=== PATIENT | male | born 1980 | race Caucasian/White ===

== ENCOUNTER 2016-10-31 17:19 | Emergency (ER) | payer MEDICAID ==
[~2016-10-31] VITALS: Ht 180.3 cm; Wt 82.0 kg
[2016-10-31] MEDS: HYDROCODONE/ACETAMINOPHEN 5-325 MG TABLET PO ONE (18:56)
[2016-10-31 19:35] VITALS: BP 127/71
== END 2016-10-31 19:38 | disposition home or self-care (01) ==
LOC: EMS 17:21
DX: S93.401A Sprain of unspecified ligament of right ankle, initial encounter (principal); F17.210 Nicotine dependence, cigarettes, uncomplicated; F12.90 Cannabis use, unspecified, uncomplicated; F11.90 Opioid use, unspecified, uncomplicated; X58.XXXA Exposure to other specified factors, initial encounter; Y93.89 Activity, other specified; Y92.89 Other specified places as the place of occurrence of the external cause; Y99.8 Other external cause status
CPT/HCPCS: 99284

== ENCOUNTER 2016-11-03 13:15 | Emergency (ER) | payer MEDICAID ==
[~2016-11-03] VITALS: Ht 177.8 cm; Wt 81.8 kg
[2016-11-03] MEDS ORDERED: CEFTAROLINE 600 MG/D5W 250 ML IV ONE (14:45)
[2016-11-03] MEDS ORDERED: KETOROLAC TROMETHAMINE 30 MG/ML VIAL IVP ONE (14:45)
[2016-11-03] MEDS ORDERED: TraMADol HCL 50 MG TABLET PO ONE (16:15)
[2016-11-03 17:02] VITALS: BP 132/79
== END 2016-11-03 17:04 | disposition home or self-care (01) ==
LOC: EMS 13:20
DX: L03.115 Cellulitis of right lower limb (principal); F11.10 Opioid abuse, uncomplicated; F12.10 Cannabis abuse, uncomplicated; F17.200 Nicotine dependence, unspecified, uncomplicated
CPT/HCPCS: 96365; 96366; 96375; 99285; J0712; J1885

== ENCOUNTER 2017-01-16 08:36 | Emergency (ER) | payer MEDICAID, OTHER ==
[~2017-01-16] VITALS: Ht 177.8 cm; Wt 90.0 kg
[2017-01-16] MEDS ORDERED: METH10 PO (08:39)
[2017-01-16] MEDS ORDERED: PERTUSS(ACELL),DIPH,TET VAC/PF 0.5 ML VIAL IM ONE (09:30)
[2017-01-16] MEDS ORDERED: POVIDONE-IODINE 10% 120 ML SOLUTION TP ONE (10:00)
[2017-01-16] MEDS ORDERED: LIDOCAINE HCL 1% 10 ML VIAL INJ ONE (10:00)
[2017-01-16 10:17] VITALS: BP 118/66
== END 2017-01-16 10:54 | disposition home or self-care (01) ==
LOC: EMS 08:37
DX: S81.831A Puncture wound without foreign body, right lower leg, initial encounter (principal); F17.210 Nicotine dependence, cigarettes, uncomplicated; F12.90 Cannabis use, unspecified, uncomplicated; F11.90 Opioid use, unspecified, uncomplicated; W45.8XXA Other foreign body or object entering through skin, initial encounter; Y93.89 Activity, other specified; Y92.89 Other specified places as the place of occurrence of the external cause; Y99.8 Other external cause status
CPT/HCPCS: 10120; 73590; 90471; 90715; 99285; J3490

== ENCOUNTER 2017-02-14 17:41 | Emergency (ER) | payer OTHER ==
[~2017-02-14] VITALS: Ht 177.8 cm; Wt 81.8 kg
[~2017-02-14 17:41] MED LIST: METH10 PO
[2017-02-14] MEDS ORDERED: ONDANSETRON HCL 4 MG/2 ML VIAL IVP ONE (18:45)
[2017-02-14] MEDS ORDERED: MORPHINE SULFATE 4 MG/ML SYRINGE IVP ONE ×2 (18:45→20:15)
[2017-02-14] MEDS ORDERED: SODIUM CHLORIDE 0.9% 1,000 ML IV ONE (18:45)
[2017-02-14] MEDS ORDERED: LIDOCAINE HCL 1% 10 ML VIAL INJ ONE (18:45)
[2017-02-14 19:07] LABS: BASOPHILS # (AUTO) 0.06 K/uL (0.00-0.20); BASOPHILS % (AUTO) 0.5 % (0.0-2.0); EOSINOPHILS # (AUTO) 0.13 K/uL (0.00-0.70); EOSINOPHILS % (AUTO) 1.07 % (1.0-6.0); HEMATOCRIT 41.2 % (41-53); HEMOGLOBIN 13.9 g/dL (13.5-17.5); LYMPHOCYTES % (AUTO) 16.6 % (22.0-44.0); MEAN CORPUSCULAR HEMOGLOBIN 29.8 pg (26.0-34.0); MEAN CORPUSCULAR HGB CONC 33.7 G/dL (31.0-37.0); MEAN CORPUSCULAR VOLUME 89 fL (80-100); MONOCYTES # (AUTO) 0.9 K/uL (0.1-1.0); MONOCYTES % (AUTO) 7.6 % (2.0-9.0); NEUTROPHILS % (AUTO) 74.3 % (40.0-70.0); PLATELET COUNT (AUTO) 269 K/uL (150-450); RED BLOOD CELL COUNT(AUTO) 4.64 MIL/uL (4.50-5.90); RED CELL DISTRIBUTION WIDTH 14.5 % (11.5-14.5); WHITE BLOOD COUNT (AUTO) 12.1 K/uL (4.5-11.0)
[2017-02-14 19:12] LABS: ANION GAP 11 mmol/L (8-16); CALCIUM, TOTAL 8.9 mg/dL (8.8-10.5); CARBON DIOXIDE 26 mmol/L (22-29); CHLORIDE 100 mmol/L (98-107); CREATININE 0.87 mg/dL (0.60-1.30); GLOMERULAR FILTR. RATE CALC > 60 mL/min (>60); POTASSIUM 3.9 mmol/L (3.5-5.1); SODIUM SERUM 137 mmol/L (136-145); UREA NITROGEN, BLOOD 14 mg/dL (7-18)
[2017-02-14 19:17] LABS: ALANINE AMINOTRANSFERASE 38 U/L (12-78); ALBUMIN 3.2 g/dL (3.4-5.0); ASPARTATE AMINOTRANSFERASE 24 U/L (15-37); BILIRUBIN,TOTAL 0.5 mg/dL (0.1-1.0); TOTAL PROTEIN, SERUM 7.4 g/dL (6.4-8.2)
[2017-02-14] MEDS ORDERED: CLINDAMYCIN 600 MG/D5% WATER 50 ML IV ONE (19:45)
[2017-02-14] MEDS ORDERED: MORPHINE SULFATE 4 MG/ML SYRINGE IM ONE (20:30)
[2017-02-14 20:35] VITALS: BP 144/90
== END 2017-02-14 20:40 | disposition home or self-care (01) ==
LOC: EMS 17:44
DX: L02.413 Cutaneous abscess of right upper limb (principal); L03.113 Cellulitis of right upper limb; F17.210 Nicotine dependence, cigarettes, uncomplicated; F11.90 Opioid use, unspecified, uncomplicated; F12.90 Cannabis use, unspecified, uncomplicated
CPT/HCPCS: 10061; 36415; 80053; 85025; 96361; 96365; 96372; 96375; 99284; J2270; J2405; J3490 ×2; J7030

== ENCOUNTER 2017-04-04 03:23 | Emergency (ER) | payer OTHER ==
[~2017-04-04] VITALS: Ht 177.8 cm; Wt 77.3 kg
[2017-04-04] MEDS ORDERED: METH10 PO (03:28)
[2017-04-04 04:17] LABS: BASOPHILS % (AUTO) 0.2 % (0.0-2.0); EOSINOPHILS % (AUTO) 0.6 % (1.0-6.0); HEMOGLOBIN 15.7 g/dL (13.5-17.5); LYMPHOCYTES # (AUTO) 2.4 K/uL (1.0-4.8); LYMPHOCYTES % (AUTO) 20.2 % (22.0-44.0); MEAN CORPUSCULAR HEMOGLOBIN 30.3 pg (26.0-34.0); MEAN CORPUSCULAR HGB CONC 34.2 G/dL (31.0-37.0); MEAN CORPUSCULAR VOLUME 89 fL (80-100); MONOCYTES % (AUTO) 8.8 % (2.0-9.0); NEUTROPHILS # (AUTO) 8.3 K/uL (1.8-7.7); NEUTROPHILS % (AUTO) 70.2 % (40.0-70.0); PLATELET COUNT (AUTO) 225 K/uL (150-450); RED BLOOD CELL COUNT(AUTO) 5.19 MIL/uL (4.50-5.90); RED CELL DISTRIBUTION WIDTH 14.2 % (11.5-14.5); WHITE BLOOD COUNT (AUTO) 11.9 K/uL (4.5-11.0)
[2017-04-04 04:41] LABS: ANION GAP 9 mmol/L (8-16); CALCIUM, TOTAL 9.7 mg/dL (8.8-10.5); CARBON DIOXIDE 28 mmol/L (22-29); CHLORIDE 102 mmol/L (98-107); GLOMERULAR FILTR. RATE CALC > 60 mL/min (>60); POTASSIUM 4.5 mmol/L (3.5-5.1); SODIUM SERUM 139 mmol/L (136-145); UREA NITROGEN, BLOOD 17 mg/dL (7-18)
[2017-04-04 04:46] LABS: ALANINE AMINOTRANSFERASE 64 U/L (12-78); ALBUMIN 4.3 g/dL (3.4-5.0); ASPARTATE AMINOTRANSFERASE 46 U/L (15-37); BILIRUBIN,TOTAL 1.1 mg/dL (0.1-1.0); TOTAL PROTEIN, SERUM 8.4 g/dL (6.4-8.2)
[2017-04-04 04:47] VITALS: BP 118/60
[2017-04-04 05:03] LABS: GLUCOSE,POINT OF CARE 87 MG/DL (70-110)
== END 2017-04-04 05:15 | disposition home or self-care (01) ==
LOC: EMS 03:25
DX: R11.2 Nausea with vomiting, unspecified (principal); F15.10 Other stimulant abuse, uncomplicated; F11.90 Opioid use, unspecified, uncomplicated; F12.90 Cannabis use, unspecified, uncomplicated; F17.210 Nicotine dependence, cigarettes, uncomplicated; Z02.89 Encounter for other administrative examinations
CPT/HCPCS: 36415; 80053; 80307; 82962; 83690; 85025; 93005; 99285; G0480

== ENCOUNTER 2017-04-19 18:34 | Inpatient (IN) | payer OTHER ==
[~2017-04-19] VITALS: Ht 167.6 cm; Wt 80.5 kg
[2017-04-19 19:55] LABS: BASOPHILS # (AUTO) 0.02 K/uL (0.00-0.20); BASOPHILS % (AUTO) 0.2 % (0.0-2.0); EOSINOPHILS # (AUTO) 0.11 K/uL (0.00-0.70); EOSINOPHILS % (AUTO) 1.29 % (1.0-6.0); HEMATOCRIT 49.9 % (41-53); HEMOGLOBIN 16.6 g/dL (13.5-17.5); LYMPHOCYTES # (AUTO) 1.2 K/uL (1.0-4.8); LYMPHOCYTES % (AUTO) 13.8 % (22.0-44.0); MEAN CORPUSCULAR HEMOGLOBIN 30.2 pg (26.0-34.0); MEAN CORPUSCULAR HGB CONC 33.2 G/dL (31.0-37.0); MEAN CORPUSCULAR VOLUME 91 fL (80-100); MONOCYTES # (AUTO) 0.5 K/uL (0.1-1.0); MONOCYTES % (AUTO) 5.6 % (2.0-9.0); NEUTROPHILS % (AUTO) 79.1 % (40.0-70.0); PLATELET COUNT (AUTO) 186 K/uL (150-450); RED BLOOD CELL COUNT(AUTO) 5.49 MIL/uL (4.50-5.90); RED CELL DISTRIBUTION WIDTH 14.9 % (11.5-14.5)
[2017-04-19 20:08] LABS: ANION GAP 11 mmol/L (8-16); CALCIUM, TOTAL 9.2 mg/dL (8.8-10.5); CARBON DIOXIDE 26 mmol/L (22-29); CHLORIDE 106 mmol/L (98-107); GLOMERULAR FILTR. RATE CALC > 60 mL/min (>60); GLUCOSE,RANDOM 104 mg/dL (70-110); POTASSIUM 4.4 mmol/L (3.5-5.1); SODIUM SERUM 143 mmol/L (136-145); UREA NITROGEN, BLOOD 18 mg/dL (7-18)
[2017-04-19 20:13] LABS: ALANINE AMINOTRANSFERASE 103 U/L (12-78); ALBUMIN 4.3 g/dL (3.4-5.0); ALKALINE PHOSPHATASE 69 U/L (46-116); ASPARTATE AMINOTRANSFERASE 57 U/L (15-37); BILIRUBIN,TOTAL 0.8 mg/dL (0.1-1.0); TOTAL PROTEIN, SERUM 8.3 g/dL (6.4-8.2)
[2017-04-19] MEDS ORDERED: ONDANSETRON HCL 4 MG/2 ML VIAL IVP ONE (21:30)
[2017-04-19] MEDS ORDERED: NALOXONE HCL 1 MG/ML 2 ML SYG IVP ONE (21:45)
[2017-04-19 21:50] LABS: AMPHET/METH SCREEN,URINE NEGATIVE (NEGATIVE); BARBITURATE SCREEN, URINE NEGATIVE (NEGATIVE); BENZODIAZEPINES SCREEN,URINE NEGATIVE (NEGATIVE); CANNABINOID SCREEN,URINE NEGATIVE (NEGATIVE); COCAINE SCREEN,URINE NEGATIVE (NEGATIVE); METHADONE SCREEN, URINE NEGATIVE (NEGATIVE); OPIATE SCREEN,URINE POSITIVE (NEGATIVE)
[2017-04-19 21:51] LABS: PHENCYCLIDINE SCREEN,URINE NEGATIVE (NEGATIVE)
[2017-04-19] MEDS ORDERED: 0.9% SODIUM CHLORIDE 10 ML SYRINGE IVP PRN (22:30)
[2017-04-19] MEDS ORDERED: ACETAMINOPHEN 325 MG TABLET PO PRN (22:30)
[2017-04-19] MEDS ORDERED: ONDANSETRON HCL 4 MG/2 ML VIAL IVP PRN (22:30)
[2017-04-19 23:00] VITALS: BP 125/91
[2017-04-19 23:44] VITALS: BP 128/97
[2017-04-20] MEDS ORDERED: NALOXONE HCL 1 MG/ML 2 ML SYG IVP ONE (00:30)
[2017-04-20] MEDS ORDERED: PNEUMOCOCCAL VACCINE POLYVALENT 0.5 ML VIAL [PPSV23] IM ONE (01:30)
[2017-04-20] MEDS ORDERED: INFLUENZA VIRUS VACCINE QVS 2017-18 (3YR+)/PF 60 MCG/0.5 ML SYRINGE IM ONE (02:00)
[2017-04-20] MEDS ORDERED: IPRATROPIUM BROMIDE 0.5 MG/2.5 ML NEB SOLUTION NEB PRN (04:15)
[2017-04-20] MEDS ORDERED: BISACODYL 10 MG RECTAL RECTAL SUPPOSITORY PR PRN (04:15)
[2017-04-20] MEDS ORDERED: ALBUTEROL SULFATE 2.5 MG/0.5 ML NEB SOLUTION NEB PRN (04:15)
[2017-04-20] MEDS ORDERED: MAGNESIUM HYDROXIDE SUSPENSION 30 ML UDCUP PO PRN (04:15)
[2017-04-20] MEDS ORDERED: ONDANSETRON HCL 4 MG/2 ML VIAL IVP PRN (04:15)
[2017-04-20] MEDS ORDERED: MAGNESIUM SULFATE 2 GM, MVI, ADULT NO.1 WITH VIT K 10 ML, THIAMINE HCL 100 MG, FOLIC AC... IV ONE ×5 (04:30)
[2017-04-20] MEDS ORDERED: [UNRECOGNIZED DRUG - REMARK] IV SCH ×5 (04:45)
[2017-04-20 05:15] VITALS: BP 124/82
[2017-04-20 07:16] VITALS: BP 100/65
[2017-04-20 07:57] LABS: BASOPHILS # (AUTO) 0.03 K/uL (0.00-0.20); BASOPHILS % (AUTO) 0.4 % (0.0-2.0); EOSINOPHILS # (AUTO) 0.19 K/uL (0.00-0.70); EOSINOPHILS % (AUTO) 2.15 % (1.0-6.0); HEMATOCRIT 43.4 % (41-53); HEMOGLOBIN 14.8 g/dL (13.5-17.5); LYMPHOCYTES % (AUTO) 23.2 % (22.0-44.0); MEAN CORPUSCULAR HEMOGLOBIN 30.5 pg (26.0-34.0); MEAN CORPUSCULAR VOLUME 89 fL (80-100); MONOCYTES # (AUTO) 0.7 K/uL (0.1-1.0); MONOCYTES % (AUTO) 8.4 % (2.0-9.0); NEUTROPHILS # (AUTO) 5.8 K/uL (1.8-7.7); NEUTROPHILS % (AUTO) 65.8 % (40.0-70.0); PLATELET COUNT (AUTO) 174 K/uL (150-450); RED BLOOD CELL COUNT(AUTO) 4.85 MIL/uL (4.50-5.90); RED CELL DISTRIBUTION WIDTH 14.4 % (11.5-14.5)
[2017-04-20 08:27] LABS: ALANINE AMINOTRANSFERASE 84 U/L (12-78); ALBUMIN 3.6 g/dL (3.4-5.0); ALKALINE PHOSPHATASE 54 U/L (46-116); ANION GAP 6 mmol/L (8-16); ASPARTATE AMINOTRANSFERASE 42 U/L (15-37); BILIRUBIN,TOTAL 1.2 mg/dL (0.1-1.0); CALCIUM, TOTAL 8.6 mg/dL (8.8-10.5); CARBON DIOXIDE 30 mmol/L (22-29); CHLORIDE 101 mmol/L (98-107); CREATININE 0.98 mg/dL (0.60-1.30); FREE T4 (FREE THYROXINE) 1.14 ng/dL (0.76-1.46); GLOMERULAR FILTR. RATE CALC > 60 mL/min (>60); GLUCOSE,RANDOM 78 mg/dL (70-110); POTASSIUM 3.8 mmol/L (3.5-5.1); SODIUM SERUM 137 mmol/L (136-145); THYROID STIMULATING HORMONE 2.78 uIU/mL (0.36-3.74); TOTAL PROTEIN, SERUM 6.8 g/dL (6.4-8.2); UREA NITROGEN, BLOOD 16 mg/dL (7-18)
[2017-04-20] MEDS: PANTOPRAZOLE SODIUM 40 MG DR TABLET PO SCH (08:39)
[2017-04-20] MEDS: DOCUSATE SODIUM 100 MG CAPSULE PO SCH ×2 (08:40→20:41)
[2017-04-20] MEDS ORDERED: HEPARIN SODIUM,PORCINE 5,000 UNITS/ML VIAL SQ SCH (09:00)
[2017-04-20 11:58] VITALS: BP 124/76
[2017-04-20 15:16] VITALS: BP_SYST 129; BP_SYST 130; BP_DIAS 62; BP_DIAS 71
[2017-04-20 15:45] VITALS: BP 138/77
[2017-04-20] MEDS: SODIUM CHLORIDE 0.9% 1,000 ML IV SCH (17:32)
[2017-04-20 20:13] VITALS: BP 129/78
[2017-04-20] MEDS ORDERED: MIRTAZAPINE 15 MG TABLET PO SCH (21:00)
[2017-04-21 05:29] VITALS: BP 125/77
[2017-04-21 08:00] VITALS: BP 129/74
[2017-04-21] MEDS: PANTOPRAZOLE SODIUM 40 MG DR TABLET PO SCH (08:00)
[2017-04-21] MEDS: DOCUSATE SODIUM 100 MG CAPSULE PO SCH (08:01)
[2017-04-21] MEDS ORDERED: ARIPiprazole 5 MG TABLET PO SCH (09:00)
[2017-04-21] MEDS: SODIUM CHLORIDE 0.9% 1,000 ML IV SCH ×2 (09:05)
== END 2017-04-21 10:35 | disposition home or self-care (01) | DRG 812 ==
LOC: EMS 18:35 → OBSVTOIN 22:13 → 5N 22:13 → 6N 22:13 → INTOOBSV 22:13 → 6N 04-20 15:10
PROVIDERS: ADMIT Internal Medicine; ATTEND Internal Medicine
DX: T40.3X1A Poisoning by methadone, accidental (unintentional), initial encounter (principal); G92 Toxic encephalopathy; F17.210 Nicotine dependence, cigarettes, uncomplicated; F12.90 Cannabis use, unspecified, uncomplicated; F41.9 Anxiety disorder, unspecified; F33.3 Major depressive disorder, recurrent, severe with psychotic symptoms; F11.20 Opioid dependence, uncomplicated; F60.9 Personality disorder, unspecified; Z59.0 Homelessness; Z86.19 Personal history of other infectious and parasitic diseases; Y92.89 Other specified places as the place of occurrence of the external cause
CPT/HCPCS: 83735; 84439; 84443; 90471; 96374; 96375; 99291; G0480; J1644; J2310; J2405; J3411; J3475; J3490; J7030

== ENCOUNTER 2017-09-14 15:03 | Emergency (ER) | payer OTHER ==
[~2017-09-14] VITALS: Ht 177.8 cm; Wt 81.8 kg
[2017-09-14] MEDS ORDERED: 0.9% SODIUM CHLORIDE 10 ML SYRINGE IVP PRN (15:15)
[2017-09-14] MEDS ORDERED: DEXAMETHASONE SOD PHOS 4 MG/ML 5 ML VIAL IVP ONE (15:15)
[2017-09-14] MEDS ORDERED: DEXAMETHASONE SOD PHOS 4 MG/ML 5 ML VIAL IM ONE (16:15)
[2017-09-14 16:41] LABS: BASOPHILS % (AUTO) 0.3 % (0.0-2.0); EOSINOPHILS % (AUTO) 2.1 % (1.0-6.0); HEMATOCRIT 41.6 % (41-53); LYMPHOCYTES # (AUTO) 1.4 K/uL (1.0-4.8); LYMPHOCYTES % (AUTO) 15.7 % (22.0-44.0); MEAN CORPUSCULAR HEMOGLOBIN 29.6 pg (26.0-34.0); MEAN CORPUSCULAR VOLUME 82 fL (80-100); MONOCYTES # (AUTO) 0.7 K/uL (0.1-1.0); MONOCYTES % (AUTO) 8.2 % (2.0-9.0); NEUTROPHILS # (AUTO) 6.7 K/uL (1.8-7.7); NEUTROPHILS % (AUTO) 73.7 % (40.0-70.0); PLATELET COUNT (AUTO) 199 K/uL (150-450); RED BLOOD CELL COUNT(AUTO) 5.06 MIL/uL (4.50-5.90); RED CELL DISTRIBUTION WIDTH 14.3 % (11.5-14.5)
[2017-09-14 16:50] LABS: ANION GAP 8 mmol/L (8-16); CALCIUM, TOTAL 9.2 mg/dL (8.8-10.5); CARBON DIOXIDE 28 mmol/L (22-29); CHLORIDE 97 mmol/L (98-107); CREATININE 0.59 mg/dL (0.60-1.30); GLOMERULAR FILTR. RATE CALC > 60 mL/min (>60); GLUCOSE,RANDOM 90 mg/dL (70-110); SODIUM SERUM 133 mmol/L (136-145); UREA NITROGEN, BLOOD 9 mg/dL (7-18)
[2017-09-14 16:56] LABS: ALANINE AMINOTRANSFERASE 128 U/L (12-78); ALBUMIN 3.5 g/dL (3.4-5.0); ALKALINE PHOSPHATASE 75 U/L (46-116); ASPARTATE AMINOTRANSFERASE 80 U/L (15-37); BILIRUBIN,TOTAL 1.3 mg/dL (0.1-1.0); TOTAL PROTEIN, SERUM 8.1 g/dL (6.4-8.2)
[2017-09-14 16:57] LABS: LACTIC ACID 0.7 mmol/L (0.4-2.0)
[2017-09-14 19:24] VITALS: BP 143/84
== END 2017-09-14 19:25 | disposition home or self-care (01) ==
LOC: EMS 15:05
DX: F19.959 Other psychoactive substance use, unspecified with psychoactive substance-induced psychotic disorder, unspecified (principal); F11.10 Opioid abuse, uncomplicated; R13.10 Dysphagia, unspecified; F17.210 Nicotine dependence, cigarettes, uncomplicated; F12.90 Cannabis use, unspecified, uncomplicated
CPT/HCPCS: 36415; 71045; 80053; 83605; 85025; 85730; 87040; 87430; 93005; 96372; 99285; J1100

== ENCOUNTER 2017-09-15 06:03 | Inpatient (IN) | payer OTHER ==
[~2017-09-15] VITALS: Ht 177.8 cm; Wt 80.1 kg
[2017-09-15] MEDS ORDERED: NALOXONE HCL 1 MG/ML 2 ML SYG IVP ONE (07:30)
[2017-09-15] MEDS ORDERED: NALOXONE HCL 1 MG/ML 2 ML SYG IM ONE (07:30)
[2017-09-15 07:32] LABS: GLUCOSE,POINT OF CARE 118 MG/DL (70-110)
[2017-09-15] MEDS ORDERED: RAPID SEQUENCE KIT [RSI] 1 EACH KIT ONE (07:35)
[2017-09-15] MEDS ORDERED: SUCCINYLCHOLINE CHLORIDE 20 MG/ML 10 ML VIAL ONE (07:37)
[2017-09-15 07:49] LABS: BASOPHILS % (AUTO) 0.2 % (0.0-2.0); EOSINOPHILS % (AUTO) 0.1 % (1.0-6.0); HEMATOCRIT 47.2 % (41-53); HEMOGLOBIN 16.7 g/dL (13.5-17.5); LYMPHOCYTES # (AUTO) 1.7 K/uL (1.0-4.8); LYMPHOCYTES % (AUTO) 8.9 % (22.0-44.0); MEAN CORPUSCULAR HEMOGLOBIN 29.3 pg (26.0-34.0); MEAN CORPUSCULAR HGB CONC 35.4 G/dL (31.0-37.0); MEAN CORPUSCULAR VOLUME 83 fL (80-100); MONOCYTES # (AUTO) 0.6 K/uL (0.1-1.0); MONOCYTES % (AUTO) 3.2 % (2.0-9.0); NEUTROPHILS # (AUTO) 16.8 K/uL (1.8-7.7); PLATELET COUNT (AUTO) 340 K/uL (150-450); RED CELL DISTRIBUTION WIDTH 14.5 % (11.5-14.5)
[2017-09-15 07:51] LABS: NEUTROPHILS % (AUTO) 87.6 % (40.0-70.0)
[2017-09-15 08:12] LABS: ANION GAP 7 mmol/L (8-16); CALCIUM, TOTAL 9.8 mg/dL (8.8-10.5); CARBON DIOXIDE 30 mmol/L (22-29); CHLORIDE 96 mmol/L (98-107); CREATININE 0.66 mg/dL (0.60-1.30); GLOMERULAR FILTR. RATE CALC > 60 mL/min (>60); GLUCOSE,RANDOM 155 mg/dL (70-110); POTASSIUM 4.8 mmol/L (3.5-5.1); SODIUM SERUM 133 mmol/L (136-145); UREA NITROGEN, BLOOD 14 mg/dL (7-18)
[2017-09-15 08:15] LABS: AMPHET/METH SCREEN,URINE NEGATIVE (NEGATIVE); BARBITURATE SCREEN, URINE NEGATIVE (NEGATIVE); BENZODIAZEPINES SCREEN,URINE NEGATIVE (NEGATIVE); CANNABINOID SCREEN,URINE NEGATIVE (NEGATIVE); COCAINE SCREEN,URINE NEGATIVE (NEGATIVE); METHADONE SCREEN, URINE NEGATIVE (NEGATIVE); OPIATE SCREEN,URINE POSITIVE (NEGATIVE)
[2017-09-15 08:18] LABS: ALANINE AMINOTRANSFERASE 145 U/L (12-78); ALBUMIN 4.3 g/dL (3.4-5.0); ALKALINE PHOSPHATASE 107 U/L (46-116); ASPARTATE AMINOTRANSFERASE 80 U/L (15-37); BILIRUBIN,TOTAL 1.5 mg/dL (0.1-1.0); TOTAL PROTEIN, SERUM 10.2 g/dL (6.4-8.2)
[2017-09-15 08:18] LABS: PHENCYCLIDINE SCREEN,URINE NEGATIVE (NEGATIVE)
[2017-09-15 08:20] LABS: ACETAMINOPHEN 2 mcg/mL (10-30)
[2017-09-15 08:23] LABS: SALICYLATE 0.7 mg/dL (2.8-20.0)
[2017-09-15 09:00] LABS: ABG A-A DIFF O2 517.5 mmHg (10-20.0); ABG BASE EXCESS -4.4 mmol/L (-2.0-3.0); ABG CARBOXYHEMOGLOBIN 1.3 % (0.0-1.5); ABG HCO3 20.1 mmol/L (22.0-26.0); ABG METHEMOGLOBIN 0.3 % (0.0-1.5); ABG OXYGEN CONTENT 24.1 mL/dL (15.0-23.0); ABG OXYGEN SATURATION 98.5 % (95.0-98.0); ABG OXYHEMOGLOBIN 96.9 % (94.0-100.0); ABG PCO2 58 mmHg (35-45); ABG TOTAL HEMOGLOBIN 17.6 G/dL (12.0-18.0); PO2, ARTERIAL BG 137.1 mmHg (92.0-100.0); SOURCE, BLOOD GAS ARTERIAL; TEMPERATURE, FAHRENHEIT, BG 98.6 FAHREN (96.0-98.6)
[2017-09-15 09:01] LABS: O2 DEVICE,BLOOD GAS VENTILATOR (ROOM AIR); PEEP,BG 5 cm H2O; SITE, BLOOD GAS RT BRACHIAL; VT, ABG 550 ml
[2017-09-15] MEDS: PROPOFOL 1000 MG/ISO-OSM 100 ML IV PRN ×3 (09:46→20:15)
[2017-09-15] MEDS: CefTRIAXone SODIUM 1 GM in DEXTROSE 5%-WATER 10 ML IV SCH (10:12)
[2017-09-15] MEDS ORDERED: SUCCINYLCHOLINE CHLORIDE 20 MG/ML 10 ML VIAL IVP ONE (10:35)
[2017-09-15] MEDS ORDERED: ETOMIDATE 2 MG/ML 10 ML VIAL IVP ONE (10:35)
[2017-09-15] MEDS ORDERED: ROCURONIUM BROMIDE 10 MG/ML 5 ML VIAL IVP ONE (12:00)
[2017-09-15] MEDS: MethylPREDNISolone SOD SUCC 125 MG/2 ML VIAL IVP SCH ×3 (12:06→23:58)
[2017-09-15] MEDS ORDERED: SODIUM CHLORIDE 0.9% 1,000 ML IV ONE (13:30)
[2017-09-15 14:05] VITALS: BP 135/84
[2017-09-15] MEDS ORDERED: ONDANSETRON HCL 4 MG/2 ML VIAL IVP PRN (17:15)
[2017-09-15] MEDS ORDERED: 0.9% SODIUM CHLORIDE 10 ML SYRINGE IVP PRN (17:15)
[2017-09-15] MEDS: PANTOPRAZOLE SODIUM 40 MG/VIAL IVP SCH (17:34)
[2017-09-15] MEDS: MVI, ADULT NO.1 WITH VIT K 10 ML in DEXTROSE 5%-0.9% SODIUM CHL 1,000 ML IV SCH ×2 (18:28)
[2017-09-15] MEDS: FentaNYL CITRATE PF 500 MCG in DEXTROSE 5%-WATER 90 ML IV PRN (18:29)
[2017-09-15 20:00] VITALS: BP 171/104
[2017-09-15 20:21] LABS: ABG A-A DIFF O2 156.5 mmHg (10-20.0); ABG BASE EXCESS -0.1 mmol/L (-2.0-3.0); ABG CARBOXYHEMOGLOBIN 1.1 % (0.0-1.5); ABG HCO3 24.4 mmol/L (22.0-26.0); ABG METHEMOGLOBIN 0.3 % (0.0-1.5); ABG OXYGEN CONTENT 20.6 mL/dL (15.0-23.0); ABG OXYGEN SATURATION 96.3 % (95.0-98.0); ABG PCO2 40 mmHg (35-45); ABG PH 7.403 (7.350-7.450); ABG TOTAL HEMOGLOBIN 15.4 G/dL (12.0-18.0); PO2, ARTERIAL BG 82.2 mmHg (92.0-100.0); SOURCE, BLOOD GAS ARTERIAL; TEMPERATURE, FAHRENHEIT, BG 98.6 FAHREN (96.0-98.6)
[2017-09-15 20:22] LABS: O2 DEVICE,BLOOD GAS VENTILATOR (ROOM AIR); SITE, BLOOD GAS LFT BRACHIAL
[2017-09-15 20:23] LABS: PEEP,BG 5 cm H2O
[2017-09-15 20:24] LABS: VT, ABG 550 ml
[2017-09-15] MEDS ORDERED: SODIUM CHLORIDE 0.9% 250 ML IV ONE (23:56)
[2017-09-16] VITALS: BP 143/73
[2017-09-16] MEDS: PROPOFOL 1000 MG/ISO-OSM 100 ML IV PRN ×6 (00:27→20:36)
[2017-09-16] MEDS: FentaNYL CITRATE PF 500 MCG in DEXTROSE 5%-WATER 90 ML IV PRN ×3 (02:37→17:40)
[2017-09-16 04:00] VITALS: BP 149/95
[2017-09-16] MEDS: MVI, ADULT NO.1 WITH VIT K 10 ML in DEXTROSE 5%-0.9% SODIUM CHL 1,000 ML IV SCH ×4 (04:09→15:44)
[2017-09-16 05:13] LABS: BASOPHILS % (AUTO) 0.1 % (0.0-2.0); EOSINOPHILS % (AUTO) 0 % (1.0-6.0); HEMOGLOBIN 14.8 g/dL (13.5-17.5); LYMPHOCYTES # (AUTO) 0.7 K/uL (1.0-4.8); MEAN CORPUSCULAR HEMOGLOBIN 29.3 pg (26.0-34.0); MEAN CORPUSCULAR HGB CONC 35.2 G/dL (31.0-37.0); MEAN CORPUSCULAR VOLUME 83 fL (80-100); MONOCYTES # (AUTO) 0.6 K/uL (0.1-1.0); MONOCYTES % (AUTO) 4.4 % (2.0-9.0); NEUTROPHILS # (AUTO) 13.4 K/uL (1.8-7.7); PLATELET COUNT (AUTO) 281 K/uL (150-450); RED BLOOD CELL COUNT(AUTO) 5.05 MIL/uL (4.50-5.90); RED CELL DISTRIBUTION WIDTH 14.9 % (11.5-14.5)
[2017-09-16 05:22] LABS: ANION GAP 7 mmol/L (8-16); CALCIUM, TOTAL 9.1 mg/dL (8.8-10.5); CARBON DIOXIDE 30 mmol/L (22-29); CHLORIDE 101 mmol/L (98-107); CREATININE 0.71 mg/dL (0.60-1.30); GLOMERULAR FILTR. RATE CALC > 60 mL/min (>60); GLUCOSE,RANDOM 144 mg/dL (70-110); POTASSIUM 4.6 mmol/L (3.5-5.1); SODIUM SERUM 138 mmol/L (136-145); UREA NITROGEN, BLOOD 17 mg/dL (7-18)
[2017-09-16 05:44] LABS: NEUTROPHILS % (AUTO) 90.5 % (40.0-70.0)
[2017-09-16] MEDS: MethylPREDNISolone SOD SUCC 125 MG/2 ML VIAL IVP SCH ×3 (05:47→17:39)
[2017-09-16] MEDS: PANTOPRAZOLE SODIUM 40 MG/VIAL IVP SCH (07:50)
[2017-09-16 08:00] VITALS: BP 159/84
[2017-09-16 09:21] LABS: ABG A-A DIFF O2 216.4 mmHg (10-20.0); ABG BASE EXCESS 4.6 mmol/L (-2.0-3.0); ABG CARBOXYHEMOGLOBIN 1.2 % (0.0-1.5); ABG HCO3 27.7 mmol/L (22.0-26.0); ABG METHEMOGLOBIN 0.2 % (0.0-1.5); ABG OXYGEN CONTENT 19.8 mL/dL (15.0-23.0); ABG OXYGEN SATURATION 97.1 % (95.0-98.0); ABG OXYHEMOGLOBIN 95.7 % (94.0-100.0); ABG PCO2 48 mmHg (35-45); ABG PH 7.404 (7.350-7.450); ABG TOTAL HEMOGLOBIN 14.7 G/dL (12.0-18.0); PO2, ARTERIAL BG 86.4 mmHg (92.0-100.0); SOURCE, BLOOD GAS ARTERIAL; TEMPERATURE, FAHRENHEIT, BG 98.3 FAHREN (96.0-98.6)
[2017-09-16 09:22] LABS: O2 DEVICE,BLOOD GAS VENTILATOR (ROOM AIR); PEEP,BG 5 cm H2O; SITE, BLOOD GAS RT RADIAL; VT, ABG 550 ml
[2017-09-16] MEDS: CefTRIAXone SODIUM 1 GM in DEXTROSE 5%-WATER 10 ML IV SCH (09:45)
[2017-09-16] MEDS: AZITHROMYCIN 500 MG/NS 250 ML IV SCH (11:10)
[2017-09-16 12:00] VITALS: BP 139/78
[2017-09-16] MEDS ORDERED: SODIUM CHLORIDE 0.9% 250 ML IV ONE (15:16)
[2017-09-16 16:00] VITALS: BP 157/96
[2017-09-16] MEDS ORDERED: VANCOMYCIN HCL 1 GM/D5% WATER 200 ML IV ONE (17:00)
[2017-09-16 20:00] VITALS: BP 156/83
[2017-09-16] MEDS: HEPARIN SODIUM,PORCINE 5,000 UNITS/ML VIAL SQ SCH (21:22)
[2017-09-16] MEDS: VANCOMYCIN HCL 1.25 GM in DEXTROSE 5%-WATER 250 ML IV SCH (21:23)
[2017-09-16] MEDS ORDERED: VANCOMYCIN HCL 1.25 GM in DEXTROSE 5%-WATER 250 ML IV ONE (22:00)
[2017-09-17] VITALS: BP 170/88
[2017-09-17] MEDS: MethylPREDNISolone SOD SUCC 125 MG/2 ML VIAL IVP SCH ×4 (00:14→17:23)
[2017-09-17] MEDS: MVI, ADULT NO.1 WITH VIT K 10 ML in DEXTROSE 5%-0.9% SODIUM CHL 1,000 ML IV SCH ×6 (00:15→20:31)
[2017-09-17] MEDS: FentaNYL CITRATE PF 500 MCG in DEXTROSE 5%-WATER 90 ML IV PRN ×3 (00:15→14:58)
[2017-09-17] MEDS: PROPOFOL 1000 MG/ISO-OSM 100 ML IV PRN ×5 (01:58→21:21)
[2017-09-17 04:00] VITALS: BP 153/84
[2017-09-17 05:15] LABS: ANION GAP 6 mmol/L (8-16); CALCIUM, TOTAL 8.9 mg/dL (8.8-10.5); CARBON DIOXIDE 29 mmol/L (22-29); CHLORIDE 104 mmol/L (98-107); CREATININE 0.67 mg/dL (0.60-1.30); GLOMERULAR FILTR. RATE CALC > 60 mL/min (>60); GLUCOSE,RANDOM 151 mg/dL (70-110); POTASSIUM 4.2 mmol/L (3.5-5.1); SODIUM SERUM 139 mmol/L (136-145); UREA NITROGEN, BLOOD 16 mg/dL (7-18)
[2017-09-17] MEDS: VANCOMYCIN HCL 1.25 GM in DEXTROSE 5%-WATER 250 ML IV SCH ×3 (06:06→21:11)
[2017-09-17] MEDS: HEPARIN SODIUM,PORCINE 5,000 UNITS/ML VIAL SQ SCH ×2 (09:28→21:11)
[2017-09-17] MEDS: CefTRIAXone SODIUM 1 GM in DEXTROSE 5%-WATER 10 ML IV SCH (09:28)
[2017-09-17 09:42] VITALS: BP 169/89
[2017-09-17] MEDS: PANTOPRAZOLE SODIUM 40 MG/VIAL IVP SCH (10:17)
[2017-09-17] MEDS: AZITHROMYCIN 500 MG/NS 250 ML IV SCH (10:51)
[2017-09-17] MEDS ORDERED: SODIUM CHLORIDE 0.9% 250 ML IV ONE (11:10)
[2017-09-17 12:00] VITALS: BP 172/93
[2017-09-17 16:00] VITALS: BP 171/91
[2017-09-17 20:00] VITALS: BP 164/88
[2017-09-18] VITALS: BP 162/95
[2017-09-18] MEDS: MethylPREDNISolone SOD SUCC 125 MG/2 ML VIAL IVP SCH ×4 (00:11→17:16)
[2017-09-18] MEDS: FentaNYL CITRATE PF 500 MCG in DEXTROSE 5%-WATER 90 ML IV PRN ×3 (00:12→16:06)
[2017-09-18] MEDS: PROPOFOL 1000 MG/ISO-OSM 100 ML IV PRN ×6 (01:51→20:31)
[2017-09-18 04:00] VITALS: BP 175/96
[2017-09-18 05:35] LABS: BASOPHILS % (AUTO) 0.1 % (0.0-2.0); EOSINOPHILS % (AUTO) 0 % (1.0-6.0); HEMATOCRIT 42.4 % (41-53); HEMOGLOBIN 14.8 g/dL (13.5-17.5); LYMPHOCYTES # (AUTO) 0.4 K/uL (1.0-4.8); LYMPHOCYTES % (AUTO) 2.3 % (22.0-44.0); MEAN CORPUSCULAR HEMOGLOBIN 29.3 pg (26.0-34.0); MEAN CORPUSCULAR HGB CONC 34.8 G/dL (31.0-37.0); MEAN CORPUSCULAR VOLUME 84 fL (80-100); MONOCYTES # (AUTO) 1.6 K/uL (0.1-1.0); MONOCYTES % (AUTO) 8.6 % (2.0-9.0); NEUTROPHILS # (AUTO) 16.1 K/uL (1.8-7.7); PLATELET COUNT (AUTO) 243 K/uL (150-450); RED BLOOD CELL COUNT(AUTO) 5.03 MIL/uL (4.50-5.90); RED CELL DISTRIBUTION WIDTH 14.7 % (11.5-14.5)
[2017-09-18 05:42] LABS: ANION GAP 7 mmol/L (8-16); CARBON DIOXIDE 31 mmol/L (22-29); CHLORIDE 102 mmol/L (98-107); CREATININE 0.68 mg/dL (0.60-1.30); GLOMERULAR FILTR. RATE CALC > 60 mL/min (>60); GLUCOSE,RANDOM 169 mg/dL (70-110); POTASSIUM 4.2 mmol/L (3.5-5.1); SODIUM SERUM 140 mmol/L (136-145); UREA NITROGEN, BLOOD 15 mg/dL (7-18); VANCOMYCIN,RANDOM 9.6 mcg/mL (25.0-50.0)
[2017-09-18] MEDS: VANCOMYCIN HCL 1.25 GM in DEXTROSE 5%-WATER 250 ML IV SCH ×3 (06:06→17:16)
[2017-09-18] MEDS: MVI, ADULT NO.1 WITH VIT K 10 ML in DEXTROSE 5%-0.9% SODIUM CHL 1,000 ML IV SCH ×4 (06:06→16:34)
[2017-09-18 08:00] VITALS: BP 140/89
[2017-09-18 08:06] LABS: ABG A-A DIFF O2 233.4 mmHg (10-20.0); ABG BASE EXCESS 4.7 mmol/L (-2.0-3.0); ABG CARBOXYHEMOGLOBIN 1.3 % (0.0-1.5); ABG HCO3 27.5 mmol/L (22.0-26.0); ABG METHEMOGLOBIN 0.2 % (0.0-1.5); ABG OXYGEN CONTENT 19.7 mL/dL (15.0-23.0); ABG OXYGEN SATURATION 93.6 % (95.0-98.0); ABG OXYHEMOGLOBIN 92.2 % (94.0-100.0); ABG PCO2 51 mmHg (35-45); ABG PH 7.384 (7.350-7.450); ABG TOTAL HEMOGLOBIN 15.2 G/dL (12.0-18.0); PO2, ARTERIAL BG 65.5 mmHg (92.0-100.0); SOURCE, BLOOD GAS ARTERIAL; TEMPERATURE, FAHRENHEIT, BG 98.7 FAHREN (96.0-98.6)
[2017-09-18 08:07] LABS: O2 DEVICE,BLOOD GAS VENTILATOR (ROOM AIR); SITE, BLOOD GAS RT RADIAL; VT, ABG 550 ml
[2017-09-18 08:08] LABS: PEEP,BG 0 cm H2O
[2017-09-18] MEDS: PANTOPRAZOLE SODIUM 40 MG/VIAL IVP SCH (08:30)
[2017-09-18] MEDS: HEPARIN SODIUM,PORCINE 5,000 UNITS/ML VIAL SQ SCH ×2 (08:31→20:30)
[2017-09-18] MEDS: AZITHROMYCIN 500 MG/NS 250 ML IV SCH (10:21)
[2017-09-18] MEDS: CefTRIAXone SODIUM 1 GM in DEXTROSE 5%-WATER 10 ML IV SCH (10:21)
[2017-09-18 12:00] VITALS: BP 141/86
[2017-09-18] MEDS ORDERED: SODIUM CHLORIDE 0.9% 250 ML IV ONE (12:20)
[2017-09-18 16:00] VITALS: BP 138/80
[2017-09-18 20:00] VITALS: BP 135/99
[2017-09-19] VITALS: BP 138/84
[2017-09-19] MEDS ORDERED: SODIUM CHLORIDE 0.9% 250 ML IV ONE (01:14)
[2017-09-19] MEDS: PROPOFOL 1000 MG/ISO-OSM 100 ML IV PRN ×2 (01:20→09:20)
[2017-09-19] MEDS: MethylPREDNISolone SOD SUCC 125 MG/2 ML VIAL IVP SCH ×4 (01:21→17:21)
[2017-09-19] MEDS: MVI, ADULT NO.1 WITH VIT K 10 ML in DEXTROSE 5%-0.9% SODIUM CHL 1,000 ML IV SCH ×6 (01:21→21:23)
[2017-09-19] MEDS: VANCOMYCIN HCL 1.25 GM in DEXTROSE 5%-WATER 250 ML IV SCH ×4 (01:21→17:21)
[2017-09-19] MEDS: FentaNYL CITRATE PF 500 MCG in DEXTROSE 5%-WATER 90 ML IV PRN (03:54)
[2017-09-19 04:00] VITALS: BP 139/92
[2017-09-19 05:31] LABS: ANION GAP 5 mmol/L (8-16); CALCIUM, TOTAL 8.6 mg/dL (8.8-10.5); CARBON DIOXIDE 33 mmol/L (22-29); CHLORIDE 102 mmol/L (98-107); CREATININE 0.68 mg/dL (0.60-1.30); GLOMERULAR FILTR. RATE CALC > 60 mL/min (>60); GLUCOSE,RANDOM 182 mg/dL (70-110); POTASSIUM 4.2 mmol/L (3.5-5.1); SODIUM SERUM 140 mmol/L (136-145); UREA NITROGEN, BLOOD 16 mg/dL (7-18)
[2017-09-19 07:03] LABS: BASOPHILS % (AUTO) 0.1 % (0.0-2.0); EOSINOPHILS % (AUTO) 0 % (1.0-6.0); HEMATOCRIT 40.4 % (41-53); HEMOGLOBIN 14.2 g/dL (13.5-17.5); LYMPHOCYTES # (AUTO) 0.7 K/uL (1.0-4.8); LYMPHOCYTES % (AUTO) 4.6 % (22.0-44.0); MEAN CORPUSCULAR HEMOGLOBIN 29.5 pg (26.0-34.0); MEAN CORPUSCULAR HGB CONC 35.1 G/dL (31.0-37.0); MEAN CORPUSCULAR VOLUME 84 fL (80-100); MONOCYTES # (AUTO) 0.8 K/uL (0.1-1.0); MONOCYTES % (AUTO) 5.5 % (2.0-9.0); NEUTROPHILS # (AUTO) 13.1 K/uL (1.8-7.7); PLATELET COUNT (AUTO) 248 K/uL (150-450); RED CELL DISTRIBUTION WIDTH 14.4 % (11.5-14.5)
[2017-09-19 07:04] LABS: NEUTROPHILS % (AUTO) 89.8 % (40.0-70.0)
[2017-09-19 08:00] VITALS: BP 144/82
[2017-09-19 08:36] LABS: ABG A-A DIFF O2 214.5 mmHg (10-20.0); ABG BASE EXCESS 9.6 mmol/L (-2.0-3.0); ABG CARBOXYHEMOGLOBIN 1.1 % (0.0-1.5); ABG HCO3 31.5 mmol/L (22.0-26.0); ABG METHEMOGLOBIN 0.1 % (0.0-1.5); ABG OXYGEN CONTENT 20.7 mL/dL (15.0-23.0); ABG OXYGEN SATURATION 96.9 % (95.0-98.0); ABG OXYHEMOGLOBIN 95.7 % (94.0-100.0); ABG PCO2 54 mmHg (35-45); ABG PH 7.415 (7.350-7.450); ABG TOTAL HEMOGLOBIN 15.4 G/dL (12.0-18.0); O2 DEVICE,BLOOD GAS VENTILATOR (ROOM AIR); PO2, ARTERIAL BG 81.2 mmHg (92.0-100.0); SITE, BLOOD GAS RT RADIAL; SOURCE, BLOOD GAS ARTERIAL; TEMPERATURE, FAHRENHEIT, BG 98.1 FAHREN (96.0-98.6); VT, ABG 550 ml
[2017-09-19] MEDS: PANTOPRAZOLE SODIUM 40 MG/VIAL IVP SCH (09:20)
[2017-09-19] MEDS: CefTRIAXone SODIUM 1 GM in DEXTROSE 5%-WATER 10 ML IV SCH (09:20)
[2017-09-19] MEDS: HEPARIN SODIUM,PORCINE 5,000 UNITS/ML VIAL SQ SCH ×2 (09:20→21:23)
[2017-09-19] MEDS: AZITHROMYCIN 500 MG/NS 250 ML IV SCH (11:11)
[2017-09-19 12:00] VITALS: BP 157/100
[2017-09-19 12:01] LABS: ABG A-A DIFF O2 142.8 mmHg (10-20.0); ABG BASE EXCESS 5.7 mmol/L (-2.0-3.0); ABG CARBOXYHEMOGLOBIN 0.9 % (0.0-1.5); ABG HCO3 28.6 mmol/L (22.0-26.0); ABG METHEMOGLOBIN 0.1 % (0.0-1.5); ABG OXYGEN CONTENT 20.7 mL/dL (15.0-23.0); ABG OXYGEN SATURATION 97.2 % (95.0-98.0); ABG OXYHEMOGLOBIN 96.2 % (94.0-100.0); ABG PCO2 49 mmHg (35-45); ABG PH 7.412 (7.350-7.450); ABG TOTAL HEMOGLOBIN 15.3 G/dL (12.0-18.0); O2 DEVICE,BLOOD GAS VENTILATOR (ROOM AIR); PO2, ARTERIAL BG 86.4 mmHg (92.0-100.0); SITE, BLOOD GAS RT RADIAL; SOURCE, BLOOD GAS ARTERIAL; TEMPERATURE, FAHRENHEIT, BG 98.6 FAHREN (96.0-98.6); VT, ABG 550 ml
[2017-09-19 16:00] VITALS: BP 155/99
[2017-09-19] MEDS ORDERED: DEXTROSE 50%-WATER 25 GM/50 ML SYRINGE IVP PRN (16:30)
[2017-09-19] MEDS: INSULIN REGULAR, HUMAN 100 UNITS/ML SQ PRN (17:23)
[2017-09-19 20:00] VITALS: BP 148/92
[2017-09-19] MEDS: LACTULOSE 20 GM/30 ML SOLUTION UDCUP PO SCH (21:23)
[2017-09-20] VITALS: BP 145/97
[2017-09-20] MEDS: VANCOMYCIN HCL 1.25 GM in DEXTROSE 5%-WATER 250 ML IV SCH ×5 (00:13→23:36)
[2017-09-20] MEDS: MethylPREDNISolone SOD SUCC 125 MG/2 ML VIAL IVP SCH ×5 (00:13→23:35)
[2017-09-20] MEDS: INSULIN REGULAR, HUMAN 100 UNITS/ML SQ PRN ×3 (00:15→11:34)
[2017-09-20 04:00] VITALS: BP 152/94
[2017-09-20] MEDS: FentaNYL CITRATE PF 500 MCG in DEXTROSE 5%-WATER 90 ML IV PRN ×2 (05:28→23:36)
[2017-09-20 05:56] LABS: ANION GAP 8 mmol/L (8-16); CALCIUM, TOTAL 8.9 mg/dL (8.8-10.5); CARBON DIOXIDE 30 mmol/L (22-29); CHLORIDE 100 mmol/L (98-107); CREATININE 0.62 mg/dL (0.60-1.30); GLOMERULAR FILTR. RATE CALC > 60 mL/min (>60); GLUCOSE,RANDOM 180 mg/dL (70-110); POTASSIUM 4.2 mmol/L (3.5-5.1); SODIUM SERUM 138 mmol/L (136-145); UREA NITROGEN, BLOOD 18 mg/dL (7-18)
[2017-09-20 06:02] LABS: BASOPHILS % (AUTO) 0.2 % (0.0-2.0); EOSINOPHILS % (AUTO) 0 % (1.0-6.0); HEMOGLOBIN 15.7 g/dL (13.5-17.5); LYMPHOCYTES # (AUTO) 0.8 K/uL (1.0-4.8); LYMPHOCYTES % (AUTO) 5.6 % (22.0-44.0); MEAN CORPUSCULAR HEMOGLOBIN 29.3 pg (26.0-34.0); MEAN CORPUSCULAR HGB CONC 34.9 G/dL (31.0-37.0); MEAN CORPUSCULAR VOLUME 84 fL (80-100); MONOCYTES # (AUTO) 0.9 K/uL (0.1-1.0); MONOCYTES % (AUTO) 6.2 % (2.0-9.0); NEUTROPHILS # (AUTO) 13.1 K/uL (1.8-7.7); PLATELET COUNT (AUTO) 277 K/uL (150-450); RED BLOOD CELL COUNT(AUTO) 5.36 MIL/uL (4.50-5.90); RED CELL DISTRIBUTION WIDTH 14.3 % (11.5-14.5)
[2017-09-20 06:57] LABS: GLUCOSE,POINT OF CARE 184 MG/DL (70-110)
[2017-09-20 06:58] LABS: GLUCOSE,POINT OF CARE 165 MG/DL (70-110)
[2017-09-20 06:58] LABS: GLUCOSE,POINT OF CARE 189 MG/DL (70-110)
[2017-09-20 08:00] VITALS: BP_SYST 147; BP_DIAS 102; BP_DIAS 2
[2017-09-20] MEDS: MVI, ADULT NO.1 WITH VIT K 10 ML in DEXTROSE 5%-0.9% SODIUM CHL 1,000 ML IV SCH ×2 (08:44)
[2017-09-20] MEDS: LACTULOSE 20 GM/30 ML SOLUTION UDCUP PO SCH ×2 (08:45→20:18)
[2017-09-20] MEDS: HEPARIN SODIUM,PORCINE 5,000 UNITS/ML VIAL SQ SCH ×2 (08:45→20:18)
[2017-09-20] MEDS: PANTOPRAZOLE SODIUM 40 MG/VIAL IVP SCH (08:45)
[2017-09-20 09:54] LABS: ABG A-A DIFF O2 142.9 mmHg (10-20.0); ABG CARBOXYHEMOGLOBIN 1.1 % (0.0-1.5); ABG HCO3 28.5 mmol/L (22.0-26.0); ABG METHEMOGLOBIN 0.2 % (0.0-1.5); ABG OXYGEN CONTENT 22.8 mL/dL (15.0-23.0); ABG OXYGEN SATURATION 96.6 % (95.0-98.0); ABG OXYHEMOGLOBIN 95.3 % (94.0-100.0); ABG PCO2 51 mmHg (35-45); ABG PH 7.396 (7.350-7.450); PO2, ARTERIAL BG 83.2 mmHg (92.0-100.0); SOURCE, BLOOD GAS ARTERIAL; TEMPERATURE, FAHRENHEIT, BG 98.6 FAHREN (96.0-98.6)
[2017-09-20 09:55] LABS: O2 DEVICE,BLOOD GAS VENTILATOR (ROOM AIR); SITE, BLOOD GAS RT RADIAL; VT, ABG 550 ml
[2017-09-20 09:56] LABS: PEEP,BG 0 cm H2O
[2017-09-20] MEDS: CefTRIAXone SODIUM 1 GM in DEXTROSE 5%-WATER 10 ML IV SCH (10:12)
[2017-09-20] MEDS: HydrALAZINE HCL 25 MG TABLET PO SCH ×2 (10:12→20:19)
[2017-09-20] MEDS: AZITHROMYCIN 500 MG/NS 250 ML IV SCH (10:13)
[2017-09-20] MEDS: SODIUM CHLORIDE 0.9% 1,000 ML IV SCH ×2 (10:13→23:35)
[2017-09-20] MEDS ORDERED: ACETAMINOPHEN 325 MG TABLET PO PRN (10:15)
[2017-09-20 12:00] VITALS: BP 149/104
[2017-09-20 12:13] LABS: GLUCOSE,POINT OF CARE 162 MG/DL (70-110)
[2017-09-20 14:09] LABS: FREE T4 (FREE THYROXINE) 1.03 ng/dL (0.76-1.46); THYROID STIMULATING HORMONE 1.53 uIU/mL (0.36-3.74)
[2017-09-20] MEDS: HydrALAZINE HCL 20 MG/ML VIAL IVP PRN (14:42)
[2017-09-20] MEDS: ACETAMINOPHEN 325 MG TABLET PO PRN ×2 (15:03→20:18)
[2017-09-20] MEDS ORDERED: METOPROLOL SUCCINATE 25 MG ER TABLET NG ONE (15:45)
[2017-09-20 16:00] VITALS: BP 158/93
[2017-09-20 20:00] VITALS: BP 159/102
[2017-09-20] MEDS: METOPROLOL TARTRATE 25 MG TABLET PO SCH (20:20)
[2017-09-20 20:27] LABS: GLUCOSE,POINT OF CARE 136 MG/DL (70-110)
[2017-09-21] VITALS: BP 144/87
[2017-09-21] MEDS: ACETAMINOPHEN 325 MG TABLET PO PRN ×3 (02:59→16:11)
[2017-09-21 04:00] VITALS: BP 135/79
[2017-09-21 05:14] LABS: BASOPHILS % (AUTO) 0.2 % (0.0-2.0); EOSINOPHILS % (AUTO) 0 % (1.0-6.0); HEMATOCRIT 48.6 % (41-53); HEMOGLOBIN 16.9 g/dL (13.5-17.5); LYMPHOCYTES # (AUTO) 0.8 K/uL (1.0-4.8); LYMPHOCYTES % (AUTO) 3.9 % (22.0-44.0); MEAN CORPUSCULAR HEMOGLOBIN 29.4 pg (26.0-34.0); MEAN CORPUSCULAR HGB CONC 34.7 G/dL (31.0-37.0); MEAN CORPUSCULAR VOLUME 85 fL (80-100); MONOCYTES # (AUTO) 1.3 K/uL (0.1-1.0); MONOCYTES % (AUTO) 6.2 % (2.0-9.0); NEUTROPHILS # (AUTO) 18.1 K/uL (1.8-7.7); NEUTROPHILS % (AUTO) 89.7 % (40.0-70.0); PLATELET COUNT (AUTO) 331 K/uL (150-450); RED BLOOD CELL COUNT(AUTO) 5.74 MIL/uL (4.50-5.90); RED CELL DISTRIBUTION WIDTH 14.6 % (11.5-14.5)
[2017-09-21 05:35] LABS: ANION GAP 7 mmol/L (8-16); CALCIUM, TOTAL 9.2 mg/dL (8.8-10.5); CARBON DIOXIDE 31 mmol/L (22-29); CHLORIDE 96 mmol/L (98-107); CREATININE 0.67 mg/dL (0.60-1.30); GLOMERULAR FILTR. RATE CALC > 60 mL/min (>60); GLUCOSE,RANDOM 141 mg/dL (70-110); POTASSIUM 4.5 mmol/L (3.5-5.1); SODIUM SERUM 134 mmol/L (136-145); UREA NITROGEN, BLOOD 25 mg/dL (7-18)
[2017-09-21] MEDS: VANCOMYCIN HCL 1.25 GM in DEXTROSE 5%-WATER 250 ML IV SCH ×4 (06:31→23:58)
[2017-09-21] MEDS: MethylPREDNISolone SOD SUCC 125 MG/2 ML VIAL IVP SCH ×4 (06:31→23:59)
[2017-09-21] MEDS: INSULIN REGULAR, HUMAN 100 UNITS/ML SQ PRN ×2 (06:32→12:51)
[2017-09-21 06:47] LABS: GLUCOSE,POINT OF CARE 138 MG/DL (70-110)
[2017-09-21 06:47] LABS: GLUCOSE,POINT OF CARE 154 MG/DL (70-110)
[2017-09-21 08:00] VITALS: BP 145/88
[2017-09-21] MEDS: FentaNYL CITRATE PF 500 MCG in DEXTROSE 5%-WATER 90 ML IV PRN ×2 (08:32→23:59)
[2017-09-21] MEDS: HydrALAZINE HCL 20 MG/ML VIAL IVP PRN (09:07)
[2017-09-21] MEDS: LACTULOSE 20 GM/30 ML SOLUTION UDCUP PO SCH ×2 (09:07→20:53)
[2017-09-21] MEDS: PANTOPRAZOLE SODIUM 40 MG/VIAL IVP SCH (09:07)
[2017-09-21] MEDS: HEPARIN SODIUM,PORCINE 5,000 UNITS/ML VIAL SQ SCH ×2 (09:09→20:54)
[2017-09-21] MEDS: METOPROLOL TARTRATE 25 MG TABLET PO SCH ×2 (09:09→20:53)
[2017-09-21] MEDS: HydrALAZINE HCL 25 MG TABLET PO SCH ×2 (09:14→20:53)
[2017-09-21] MEDS: CefTRIAXone SODIUM 1 GM in DEXTROSE 5%-WATER 10 ML IV SCH (10:37)
[2017-09-21] MEDS: AZITHROMYCIN 500 MG/NS 250 ML IV SCH (10:39)
[2017-09-21 12:00] VITALS: BP 169/98
[2017-09-21] MEDS: SODIUM CHLORIDE 0.9% 1,000 ML IV SCH (12:47)
[2017-09-21 16:00] VITALS: BP 151/94
[2017-09-21 16:02] LABS: GLUCOSE,POINT OF CARE 148 MG/DL (70-110)
[2017-09-21 19:17] LABS: GLUCOSE,POINT OF CARE 161 MG/DL (70-110)
[2017-09-21 20:00] VITALS: BP 143/84
[2017-09-21] MEDS: PIPERACILLIN/TAZO 3.375 GM/D5W 50 ML IV SCH (22:38)
[2017-09-22] VITALS (11 sets, daily range): BP systolic 118–149; BP diastolic 63–89
[2017-09-22] MEDS: INSULIN REGULAR, HUMAN 100 UNITS/ML SQ PRN ×4 (00:28→17:30)
[2017-09-22 01:45] LABS: APPEARANCE,URINE CLEAR (CLEAR); BILIRUBIN,URINE NEGATIVE (NEGATIVE); GLUCOSE, URINE (UA) NEGATIVE (NEGATIVE); KETONES,URINE NEGATIVE (NEGATIVE); LEUKOCYTE ESTERASE ,URINE NEGATIVE (NEGATIVE); NITRATE,URINE NEGATIVE (NEGATIVE); OCCULT BLOOD,URINE NEGATIVE (NEGATIVE); PROTEIN,URINE NEGATIVE (NEGATIVE); UROBILINOGEN,URINE 0.2 mg/dL (<=1.0)
[2017-09-22 02:03] LABS: INFLUENZA TYPE A NEGATIVE FOR TYPE A (NEGATIVE); INFLUENZA TYPE B NEGATIVE FOR TYPE B (NEGATIVE)
[2017-09-22] MEDS: SODIUM CHLORIDE 0.9% 1,000 ML IV SCH ×2 (02:31→16:11)
[2017-09-22] MEDS: PIPERACILLIN/TAZO 3.375 GM/D5W 50 ML IV SCH ×4 (04:31→22:21)
[2017-09-22] MEDS: MethylPREDNISolone SOD SUCC 125 MG/2 ML VIAL IVP SCH ×4 (06:16→23:57)
[2017-09-22] MEDS: VANCOMYCIN HCL 1.25 GM in DEXTROSE 5%-WATER 250 ML IV SCH ×4 (06:16→23:57)
[2017-09-22 07:02] LABS: ALANINE AMINOTRANSFERASE 53 U/L (12-78); ALBUMIN 2.8 g/dL (3.4-5.0); ALKALINE PHOSPHATASE 77 U/L (46-116); ANION GAP 8 mmol/L (8-16); ASPARTATE AMINOTRANSFERASE 20 U/L (15-37); BILIRUBIN,TOTAL 0.6 mg/dL (0.1-1.0); CALCIUM, TOTAL 8.9 mg/dL (8.8-10.5); CARBON DIOXIDE 29 mmol/L (22-29); CHLORIDE 92 mmol/L (98-107); CREATININE 0.68 mg/dL (0.60-1.30); GLOMERULAR FILTR. RATE CALC > 60 mL/min (>60); GLUCOSE,RANDOM 184 mg/dL (70-110); POTASSIUM 4.6 mmol/L (3.5-5.1); SODIUM SERUM 129 mmol/L (136-145); TOTAL PROTEIN, SERUM 7.2 g/dL (6.4-8.2); UREA NITROGEN, BLOOD 29 mg/dL (7-18); VANCOMYCIN,RANDOM 14.6 mcg/mL (25.0-50.0)
[2017-09-22 07:27] LABS: BASOPHILS % (AUTO) 0.3 % (0.0-2.0); EOSINOPHILS % (AUTO) 0 % (1.0-6.0); HEMATOCRIT 50.3 % (41-53); HEMOGLOBIN 17.6 g/dL (13.5-17.5); LYMPHOCYTES # (AUTO) 1.1 K/uL (1.0-4.8); LYMPHOCYTES % (AUTO) 5.3 % (22.0-44.0); MEAN CORPUSCULAR HEMOGLOBIN 29.1 pg (26.0-34.0); MEAN CORPUSCULAR HGB CONC 34.9 G/dL (31.0-37.0); MEAN CORPUSCULAR VOLUME 83 fL (80-100); MONOCYTES # (AUTO) 1.9 K/uL (0.1-1.0); MONOCYTES % (AUTO) 8.9 % (2.0-9.0); NEUTROPHILS # (AUTO) 17.9 K/uL (1.8-7.7); PLATELET COUNT (AUTO) 314 K/uL (150-450); RED BLOOD CELL COUNT(AUTO) 6.04 MIL/uL (4.50-5.90); RED CELL DISTRIBUTION WIDTH 14.3 % (11.5-14.5)
[2017-09-22 07:28] LABS: NEUTROPHILS % (AUTO) 85.5 % (40.0-70.0)
[2017-09-22 08:19] LABS: GLUCOSE,POINT OF CARE 171 MG/DL (70-110)
[2017-09-22 08:19] LABS: GLUCOSE,POINT OF CARE 173 MG/DL (70-110)
[2017-09-22 09:06] LABS: ABG A-A DIFF O2 152.6 mmHg (10-20.0); ABG BASE EXCESS 6.2 mmol/L (-2.0-3.0); ABG CARBOXYHEMOGLOBIN 0.7 % (0.0-1.5); ABG HCO3 29.3 mmol/L (22.0-26.0); ABG METHEMOGLOBIN 0.3 % (0.0-1.5); ABG OXYGEN CONTENT 24.7 mL/dL (15.0-23.0); ABG OXYGEN SATURATION 96.7 % (95.0-98.0); ABG OXYHEMOGLOBIN 95.7 % (94.0-100.0); ABG PCO2 44 mmHg (35-45); ABG PH 7.452 (7.350-7.450); ABG TOTAL HEMOGLOBIN 18.4 G/dL (12.0-18.0); PO2, ARTERIAL BG 81.5 mmHg (92.0-100.0); SOURCE, BLOOD GAS ARTERIAL; TEMPERATURE, FAHRENHEIT, BG 99.1 FAHREN (96.0-98.6)
[2017-09-22 09:09] LABS: O2 DEVICE,BLOOD GAS VENTILATOR (ROOM AIR); PEEP,BG 0 cm H2O; SITE, BLOOD GAS LFT RADIAL; VT, ABG 550 ml
[2017-09-22] MEDS: PANTOPRAZOLE SODIUM 40 MG/VIAL IVP SCH (09:50)
[2017-09-22] MEDS: METOPROLOL TARTRATE 25 MG TABLET PO SCH ×2 (09:50→20:15)
[2017-09-22] MEDS: HEPARIN SODIUM,PORCINE 5,000 UNITS/ML VIAL SQ SCH ×2 (09:51→20:15)
[2017-09-22] MEDS: LACTULOSE 20 GM/30 ML SOLUTION UDCUP PO SCH ×2 (09:51→20:14)
[2017-09-22] MEDS: HydrALAZINE HCL 25 MG TABLET PO SCH ×2 (09:53→20:15)
[2017-09-22] MEDS: AZITHROMYCIN 500 MG/NS 250 ML IV SCH (11:09)
[2017-09-22 11:42] LABS: GLUCOSE,POINT OF CARE 189 MG/DL (70-110)
[2017-09-22] MEDS: ACETAMINOPHEN 325 MG TABLET PO PRN ×2 (16:30→20:47)
[2017-09-22] MEDS: MORPHINE SULFATE 4 MG/ML SYRINGE IVP PRN (17:28)
[2017-09-22 22:17] LABS: GLUCOSE,POINT OF CARE 193 MG/DL (70-110)
[2017-09-23] VITALS (8 sets, daily range): BP systolic 109–136; BP diastolic 68–87
[2017-09-23] MEDS: INSULIN REGULAR, HUMAN 100 UNITS/ML SQ PRN ×3 (00:48→18:15)
[2017-09-23] MEDS: MORPHINE SULFATE 4 MG/ML SYRINGE IVP PRN (02:16)
[2017-09-23] MEDS: PIPERACILLIN/TAZO 3.375 GM/D5W 50 ML IV SCH ×4 (04:51→21:30)
[2017-09-23] MEDS: SODIUM CHLORIDE 0.9% 1,000 ML IV SCH ×2 (04:52→18:01)
[2017-09-23] MEDS ORDERED: SODIUM CHLORIDE 0.9% 250 ML IV ONE (04:53)
[2017-09-23 05:19] LABS: ANION GAP 5 mmol/L (8-16); CALCIUM, TOTAL 8.8 mg/dL (8.8-10.5); CARBON DIOXIDE 33 mmol/L (22-29); CHLORIDE 93 mmol/L (98-107); CREATININE 0.66 mg/dL (0.60-1.30); GLOMERULAR FILTR. RATE CALC > 60 mL/min (>60); GLUCOSE,RANDOM 163 mg/dL (70-110); POTASSIUM 5.1 mmol/L (3.5-5.1); SODIUM SERUM 131 mmol/L (136-145); UREA NITROGEN, BLOOD 29 mg/dL (7-18)
[2017-09-23 05:26] LABS: HEMATOCRIT 48.1 % (41-53); HEMOGLOBIN 16.9 g/dL (13.5-17.5); MEAN CORPUSCULAR HEMOGLOBIN 29.3 pg (26.0-34.0); MEAN CORPUSCULAR HGB CONC 35.2 G/dL (31.0-37.0); MEAN CORPUSCULAR VOLUME 83 fL (80-100); PLATELET COUNT (AUTO) 269 K/uL (150-450); RED BLOOD CELL COUNT(AUTO) 5.79 MIL/uL (4.50-5.90); RED CELL DISTRIBUTION WIDTH 14.6 % (11.5-14.5)
[2017-09-23] MEDS: VANCOMYCIN HCL 1.25 GM in DEXTROSE 5%-WATER 250 ML IV SCH ×3 (06:22→17:57)
[2017-09-23] MEDS: MethylPREDNISolone SOD SUCC 125 MG/2 ML VIAL IVP SCH ×3 (06:22→17:58)
[2017-09-23 07:53] LABS: GLUCOSE,POINT OF CARE 153 MG/DL (70-110)
[2017-09-23 07:53] LABS: GLUCOSE,POINT OF CARE 213 MG/DL (70-110)
[2017-09-23 09:03] LABS: BAND NEUTROPHILS % (MANUAL) 1 % (0-5); LYMPHOCYTES % (MANUAL) 4 % (22-44); MONOCYTES % (MANUAL) 4 % (2-9); SEGMENTED NEUTROPHILS % 91 % (40-70)
[2017-09-23] MEDS: LACTULOSE 20 GM/30 ML SOLUTION UDCUP PO SCH ×2 (09:43→21:30)
[2017-09-23] MEDS: HydrALAZINE HCL 20 MG/ML VIAL IVP PRN (09:44)
[2017-09-23] MEDS: METOPROLOL TARTRATE 25 MG TABLET PO SCH ×2 (09:44→21:30)
[2017-09-23] MEDS: HEPARIN SODIUM,PORCINE 5,000 UNITS/ML VIAL SQ SCH ×2 (09:45→21:30)
[2017-09-23] MEDS: HydrALAZINE HCL 25 MG TABLET PO SCH ×2 (09:49→21:30)
[2017-09-23] MEDS: PANTOPRAZOLE SODIUM 40 MG/VIAL IVP SCH (09:50)
[2017-09-23] MEDS: AZITHROMYCIN 500 MG/NS 250 ML IV SCH (11:24)
[2017-09-23] MEDS: ACETAMINOPHEN 325 MG TABLET PO PRN (14:06)
[2017-09-23 15:14] LABS: APPEARANCE,URINE CLEAR (CLEAR); BILIRUBIN,URINE NEGATIVE (NEGATIVE); GLUCOSE, URINE (UA) NEGATIVE (NEGATIVE); KETONES,URINE NEGATIVE (NEGATIVE); LEUKOCYTE ESTERASE ,URINE NEGATIVE (NEGATIVE); NITRATE,URINE NEGATIVE (NEGATIVE); OCCULT BLOOD,URINE NEGATIVE (NEGATIVE); PH,URINE 6.5 (5.0-8.0); PROTEIN,URINE NEGATIVE (NEGATIVE)
[2017-09-23 15:52] LABS: BACTERIA,URINE Rare /HPF (None Seen); RBC,URINE 0-2 /HPF (0-2); SQUAMOUS EPITHELIAL CELL,UR Few /LPF (None Seen); WBC,URINE 0-2 /HPF (0-5)
[2017-09-24] VITALS (9 sets, daily range): BP systolic 107–136; BP diastolic 70–82
[2017-09-24] MEDS: VANCOMYCIN HCL 1.25 GM in DEXTROSE 5%-WATER 250 ML IV SCH ×2 (00:19→05:45)
[2017-09-24] MEDS: MethylPREDNISolone SOD SUCC 125 MG/2 ML VIAL IVP SCH ×4 (00:19→17:00)
[2017-09-24] MEDS: INSULIN REGULAR, HUMAN 100 UNITS/ML SQ PRN ×4 (01:15→16:59)
[2017-09-24] MEDS: MORPHINE SULFATE 4 MG/ML SYRINGE IVP PRN ×3 (02:29→19:44)
[2017-09-24] MEDS ORDERED: [UNRECOGNIZED DRUG - OTHER] CLINICAL ONE (03:45)
[2017-09-24] MEDS: PIPERACILLIN/TAZO 3.375 GM/D5W 50 ML IV SCH ×2 (04:05→09:07)
[2017-09-24] MEDS: MetroNIDAZOLE 500 MG/NACL 100 ML IV SCH ×3 (04:05→19:23)
[2017-09-24] MEDS ORDERED: SODIUM CHLORIDE 0.9% 250 ML IV ONE (04:41)
[2017-09-24 05:22] LABS: ANION GAP 8 mmol/L (8-16); CALCIUM, TOTAL 8.6 mg/dL (8.8-10.5); CARBON DIOXIDE 30 mmol/L (22-29); CHLORIDE 95 mmol/L (98-107); CREATININE 0.72 mg/dL (0.60-1.30); GLOMERULAR FILTR. RATE CALC > 60 mL/min (>60); GLUCOSE,RANDOM 164 mg/dL (70-110); POTASSIUM 4.9 mmol/L (3.5-5.1); SODIUM SERUM 133 mmol/L (136-145); UREA NITROGEN, BLOOD 35 mg/dL (7-18)
[2017-09-24] MEDS: SODIUM CHLORIDE 0.9% 1,000 ML IV SCH ×2 (06:55→19:23)
[2017-09-24] MEDS: LACTULOSE 20 GM/30 ML SOLUTION UDCUP PO SCH ×2 (08:40→21:05)
[2017-09-24] MEDS: PANTOPRAZOLE SODIUM 40 MG/VIAL IVP SCH (08:40)
[2017-09-24] MEDS: HEPARIN SODIUM,PORCINE 5,000 UNITS/ML VIAL SQ SCH ×2 (08:40→21:05)
[2017-09-24] MEDS: HydrALAZINE HCL 25 MG TABLET PO SCH ×2 (08:40→21:05)
[2017-09-24] MEDS: METOPROLOL TARTRATE 25 MG TABLET PO SCH ×2 (08:40→21:05)
[2017-09-24] MEDS ORDERED: SODIUM CHLORIDE 0.9% IV ONE ×4 (10:00)
[2017-09-24 10:18] LABS: GLUCOSE,POINT OF CARE 153 MG/DL (70-110)
[2017-09-24 10:18] LABS: GLUCOSE,POINT OF CARE 143 MG/DL (70-110)
[2017-09-24 10:18] LABS: GLUCOSE,POINT OF CARE 181 MG/DL (70-110)
[2017-09-24 12:21] LABS: LEGIONELLA PNEUMO AG URINE Negative (Negative); ORGANISM ID Not indicated.; S PNEUMO SOURCE Urine; STREP PNEUMONIAE AG URINE Negative (Negative); STREP.PNEUMO BODY FLUID CULT. Not Indicated
[2017-09-24 15:03] LABS: GLUCOSE,POINT OF CARE 183 MG/DL (70-110)
[2017-09-24 15:07] LABS: GLUCOSE,POINT OF CARE 188 MG/DL (70-110)
[2017-09-24] MEDS: AMPICILLIN SODIUM/SULBACTAM NA 3 GM in SODIUM CHLORIDE 0.9% 100 ML IV SCH ×2 (16:26→22:51)
[2017-09-24] MEDS: ACETAMINOPHEN 325 MG TABLET PO PRN (16:27)
[2017-09-24 17:43] LABS: GLUCOSE,POINT OF CARE 147 MG/DL (70-110)
[2017-09-24] MEDS: METOCLOPRAMIDE HCL 5 MG/ML 2 ML VIAL IVP SCH (23:37)
[2017-09-25] VITALS: BP 119/78
[2017-09-25] MEDS: MetroNIDAZOLE 500 MG/NACL 100 ML IV SCH ×3 (03:29→19:17)
[2017-09-25 04:00] VITALS: BP 125/84
[2017-09-25] MEDS: AMPICILLIN SODIUM/SULBACTAM NA 3 GM in SODIUM CHLORIDE 0.9% 100 ML IV SCH ×4 (04:57→22:59)
[2017-09-25] MEDS: MethylPREDNISolone SOD SUCC 125 MG/2 ML VIAL IVP SCH (04:59)
[2017-09-25] MEDS: METOCLOPRAMIDE HCL 5 MG/ML 2 ML VIAL IVP SCH ×4 (05:00→23:44)
[2017-09-25 07:07] LABS: BASOPHILS % (AUTO) 0.1 % (0.0-2.0); EOSINOPHILS % (AUTO) 0 % (1.0-6.0); HEMATOCRIT 43.5 % (41-53); HEMOGLOBIN 15.3 g/dL (13.5-17.5); LYMPHOCYTES # (AUTO) 1.5 K/uL (1.0-4.8); LYMPHOCYTES % (AUTO) 6.8 % (22.0-44.0); MEAN CORPUSCULAR HEMOGLOBIN 29.4 pg (26.0-34.0); MEAN CORPUSCULAR HGB CONC 35.2 G/dL (31.0-37.0); MEAN CORPUSCULAR VOLUME 84 fL (80-100); MONOCYTES # (AUTO) 2.4 K/uL (0.1-1.0); MONOCYTES % (AUTO) 10.9 % (2.0-9.0); NEUTROPHILS # (AUTO) 17.7 K/uL (1.8-7.7); NEUTROPHILS % (AUTO) 82.2 % (40.0-70.0); PLATELET COUNT (AUTO) 203 K/uL (150-450); RED CELL DISTRIBUTION WIDTH 14.5 % (11.5-14.5)
[2017-09-25 07:21] LABS: ANION GAP 6 mmol/L (8-16); CARBON DIOXIDE 33 mmol/L (22-29); CHLORIDE 95 mmol/L (98-107); CREATININE 0.69 mg/dL (0.60-1.30); GLOMERULAR FILTR. RATE CALC > 60 mL/min (>60); GLUCOSE,RANDOM 122 mg/dL (70-110); SODIUM SERUM 134 mmol/L (136-145); UREA NITROGEN, BLOOD 31 mg/dL (7-18)
[2017-09-25 08:00] VITALS: BP 124/71
[2017-09-25] MEDS: PANTOPRAZOLE SODIUM 40 MG/VIAL IVP SCH (10:40)
[2017-09-25] MEDS: HEPARIN SODIUM,PORCINE 5,000 UNITS/ML VIAL SQ SCH ×2 (10:40→21:17)
[2017-09-25] MEDS: HydrALAZINE HCL 25 MG TABLET PO SCH ×2 (10:40→21:17)
[2017-09-25] MEDS: LACTULOSE 20 GM/30 ML SOLUTION UDCUP PO SCH ×2 (10:40→21:17)
[2017-09-25] MEDS: METOPROLOL TARTRATE 25 MG TABLET PO SCH ×2 (10:43→21:17)
[2017-09-25] MEDS: SODIUM CHLORIDE 0.9% 1,000 ML IV SCH ×2 (10:43→23:45)
[2017-09-25] MEDS ORDERED: SODIUM CHLORIDE 0.9% 250 ML IV ONE (11:19)
[2017-09-25 11:42] LABS: GLUCOSE,POINT OF CARE 138 MG/DL (70-110)
[2017-09-25 11:45] LABS: GLUCOSE, CSF 88 mg/dL (50-80); TOTAL PROTEIN, CSF 42 mg/dL (15-45)
[2017-09-25 12:00] VITALS: BP 108/64
[2017-09-25 12:13] LABS: APPEARANCE,CSF CLEAR (CLEAR); APPEARANCE2,CSF CLEAR (CLEAR); COLOR,CSF COLORLESS (COLORLESS); COLOR2,CSF COLORLESS (COLORLESS); CSF 2ND TUBE NUMBER 4; CSF TUBE NUMBER 1
[2017-09-25 13:26] LABS: LYMPHOCYTES1,CSF 0 %; LYMPHOCYTES2,CSF 0 %; MONOCYTES1,CSF 0 %; MONOCYTES2,CSF 0 %; NEUTROPHILS1,CSF 0 %; NEUTROPHILS2,CSF 0 %
[2017-09-25 14:18] LABS: GLUCOSE,POINT OF CARE 135 MG/DL (70-110)
[2017-09-25 14:18] LABS: GLUCOSE,POINT OF CARE 132 MG/DL (70-110)
[2017-09-25 16:00] VITALS: BP 114/77
[2017-09-25 17:52] LABS: GLUCOSE,POINT OF CARE 126 MG/DL (70-110)
[2017-09-25 20:00] VITALS: BP 107/65
[2017-09-26] VITALS: BP 102/65
[2017-09-26] MEDS: MetroNIDAZOLE 500 MG/NACL 100 ML IV SCH ×3 (03:58→20:33)
[2017-09-26 04:00] VITALS: BP 98/67
[2017-09-26] MEDS: AMPICILLIN SODIUM/SULBACTAM NA 3 GM in SODIUM CHLORIDE 0.9% 100 ML IV SCH ×4 (05:26→23:44)
[2017-09-26] MEDS: METOCLOPRAMIDE HCL 5 MG/ML 2 ML VIAL IVP SCH ×4 (05:27→23:44)
[2017-09-26] MEDS: MethylPREDNISolone SOD SUCC 125 MG/2 ML VIAL IVP SCH (05:27)
[2017-09-26 05:31] LABS: PROTHROMBIN TIME 10.4 SEC (9.4-11.6)
[2017-09-26 05:36] LABS: ANION GAP 4 mmol/L (8-16); CALCIUM, TOTAL 8.1 mg/dL (8.8-10.5); CARBON DIOXIDE 32 mmol/L (22-29); CHLORIDE 101 mmol/L (98-107); CREATININE 0.54 mg/dL (0.60-1.30); GLOMERULAR FILTR. RATE CALC > 60 mL/min (>60); GLUCOSE,RANDOM 103 mg/dL (70-110); POTASSIUM 3.9 mmol/L (3.5-5.1); SODIUM SERUM 137 mmol/L (136-145); UREA NITROGEN, BLOOD 27 mg/dL (7-18)
[2017-09-26 05:41] LABS: BASOPHILS % (AUTO) 0.1 % (0.0-2.0); EOSINOPHILS % (AUTO) 0.1 % (1.0-6.0); HEMATOCRIT 39.9 % (41-53); HEMOGLOBIN 13.8 g/dL (13.5-17.5); LYMPHOCYTES # (AUTO) 1.2 K/uL (1.0-4.8); LYMPHOCYTES % (AUTO) 6.9 % (22.0-44.0); MEAN CORPUSCULAR HEMOGLOBIN 29.2 pg (26.0-34.0); MEAN CORPUSCULAR HGB CONC 34.6 G/dL (31.0-37.0); MEAN CORPUSCULAR VOLUME 85 fL (80-100); MONOCYTES # (AUTO) 1.3 K/uL (0.1-1.0); MONOCYTES % (AUTO) 8.1 % (2.0-9.0); NEUTROPHILS % (AUTO) 84.8 % (40.0-70.0); PLATELET COUNT (AUTO) 128 K/uL (150-450); RED BLOOD CELL COUNT(AUTO) 4.73 MIL/uL (4.50-5.90); RED CELL DISTRIBUTION WIDTH 14.2 % (11.5-14.5)
[2017-09-26 06:48] LABS: GLUCOSE,POINT OF CARE 105 MG/DL (70-110)
[2017-09-26 06:48] LABS: GLUCOSE,POINT OF CARE 128 MG/DL (70-110)
[2017-09-26 08:00] VITALS: BP 100/68
[2017-09-26 08:05] LABS: ABG A-A DIFF O2 168.1 mmHg (10-20.0); ABG CARBOXYHEMOGLOBIN 1.3 % (0.0-1.5); ABG HCO3 28.5 mmol/L (22.0-26.0); ABG METHEMOGLOBIN 0.2 % (0.0-1.5); ABG OXYGEN CONTENT 19.5 mL/dL (15.0-23.0); ABG OXYGEN SATURATION 98.2 % (95.0-98.0); ABG OXYHEMOGLOBIN 96.7 % (94.0-100.0); ABG PCO2 43 mmHg (35-45); ABG PH 7.446 (7.350-7.450); ABG TOTAL HEMOGLOBIN 14.3 G/dL (12.0-18.0); PO2, ARTERIAL BG 103.6 mmHg (92.0-100.0); SOURCE, BLOOD GAS ARTERIAL; TEMPERATURE, FAHRENHEIT, BG 98.6 FAHREN (96.0-98.6)
[2017-09-26 08:06] LABS: O2 DEVICE,BLOOD GAS VENTILATOR (ROOM AIR); SITE, BLOOD GAS RT RADIAL
[2017-09-26 08:07] LABS: PEEP,BG 0 cm H2O; VT, ABG 550 ml
[2017-09-26] MEDS ORDERED: LIDOCAINE HCL 1%/EPI 1:200,000/PF 30 ML VIAL ONE (08:56)
[2017-09-26] MEDS ORDERED: SODIUM CL IRRIG SOLN BAG 3,000 ML IRRIG ONE (08:56)
[2017-09-26] MEDS: LACTULOSE 20 GM/30 ML SOLUTION UDCUP PO SCH ×2 (09:00→20:33)
[2017-09-26] MEDS: HEPARIN SODIUM,PORCINE 5,000 UNITS/ML VIAL SQ SCH ×2 (09:00→20:34)
[2017-09-26] MEDS: HydrALAZINE HCL 25 MG TABLET PO SCH ×2 (09:00→20:34)
[2017-09-26] MEDS: METOPROLOL TARTRATE 25 MG TABLET PO SCH ×2 (09:00→20:34)
[2017-09-26] MEDS: PANTOPRAZOLE SODIUM 40 MG/VIAL IVP SCH (11:02)
[2017-09-26 11:22] LABS: GLUCOSE,POINT OF CARE 131 MG/DL (70-110)
[2017-09-26 12:00] VITALS: BP 98/64
[2017-09-26] MEDS ORDERED: PROPOFOL 1% 20 ML VIAL IVP ONE (12:00)
[2017-09-26] MEDS ORDERED: ONDANSETRON HCL 4 MG/2 ML VIAL IVP ONE (12:00)
[2017-09-26] MEDS ORDERED: FentaNYL CITRATE-PF 100 MCG/2 ML VIAL IVP ONE (12:00)
[2017-09-26] MEDS ORDERED: DEXAMETHASONE SOD PHOS 4 MG/ML VIAL IVP ONE (12:00)
[2017-09-26] MEDS ORDERED: LIDOCAINE HCL/PF 2% 5 ML VIAL INJ ONE (12:00)
[2017-09-26] MEDS ORDERED: METOCLOPRAMIDE HCL 5 MG/ML 2 ML VIAL IVP ONE (12:00)
[2017-09-26] MEDS ORDERED: MIDAZOLAM HCL 2 MG/2 ML VIAL IVP ONE (12:00)
[2017-09-26 16:00] VITALS: BP 108/62
[2017-09-26 17:37] LABS: GLUCOSE,POINT OF CARE 140 MG/DL (70-110)
[2017-09-26 20:00] VITALS: BP 102/59
[2017-09-26] MEDS ORDERED: SODIUM CHLORIDE 0.9% 100 ML ONE (20:30)
[2017-09-26] MEDS: VANCOMYCIN HCL 1.25 GM in DEXTROSE 5%-WATER 250 ML IV SCH (20:33)
[2017-09-27] VITALS (11 sets, daily range): BP systolic 89–111; BP diastolic 58–71
[2017-09-27] MEDS: VANCOMYCIN HCL 1.25 GM in DEXTROSE 5%-WATER 250 ML IV SCH ×4 (01:33→23:39)
[2017-09-27] MEDS: MORPHINE SULFATE 4 MG/ML SYRINGE IVP PRN ×3 (02:18→20:01)
[2017-09-27 04:08] LABS: GLUCOSE,POINT OF CARE 137 MG/DL (70-110)
[2017-09-27] MEDS ORDERED: SODIUM CHLORIDE 0.9% 100 ML ONE ×3 (04:22→19:49)
[2017-09-27] MEDS: MethylPREDNISolone SOD SUCC 40 MG/ML VIAL IVP SCH (04:23)
[2017-09-27] MEDS: MetroNIDAZOLE 500 MG/NACL 100 ML IV SCH ×3 (04:23→20:01)
[2017-09-27] MEDS: AMPICILLIN SODIUM/SULBACTAM NA 3 GM in SODIUM CHLORIDE 0.9% 100 ML IV SCH ×4 (04:23→22:37)
[2017-09-27 04:49] LABS: BASOPHILS % (AUTO) 0.2 % (0.0-2.0); EOSINOPHILS % (AUTO) 0.1 % (1.0-6.0); HEMATOCRIT 37.8 % (41-53); HEMOGLOBIN 13.4 g/dL (13.5-17.5); LYMPHOCYTES # (AUTO) 1.2 K/uL (1.0-4.8); LYMPHOCYTES % (AUTO) 6.4 % (22.0-44.0); MEAN CORPUSCULAR HEMOGLOBIN 29.8 pg (26.0-34.0); MEAN CORPUSCULAR HGB CONC 35.4 G/dL (31.0-37.0); MEAN CORPUSCULAR VOLUME 84 fL (80-100); MONOCYTES # (AUTO) 1.3 K/uL (0.1-1.0); MONOCYTES % (AUTO) 6.7 % (2.0-9.0); NEUTROPHILS # (AUTO) 16.5 K/uL (1.8-7.7); PLATELET COUNT (AUTO) 134 K/uL (150-450); RED BLOOD CELL COUNT(AUTO) 4.49 MIL/uL (4.50-5.90); RED CELL DISTRIBUTION WIDTH 14.1 % (11.5-14.5)
[2017-09-27 04:55] LABS: NEUTROPHILS % (AUTO) 86.6 % (40.0-70.0)
[2017-09-27 05:03] LABS: ANION GAP 4 mmol/L (8-16); CARBON DIOXIDE 32 mmol/L (22-29); CHLORIDE 98 mmol/L (98-107); GLOMERULAR FILTR. RATE CALC > 60 mL/min (>60); GLUCOSE,RANDOM 140 mg/dL (70-110); POTASSIUM 3.8 mmol/L (3.5-5.1); SODIUM SERUM 134 mmol/L (136-145); UREA NITROGEN, BLOOD 23 mg/dL (7-18)
[2017-09-27] MEDS: METOCLOPRAMIDE HCL 5 MG/ML 2 ML VIAL IVP SCH ×4 (06:02→23:39)
[2017-09-27] MEDS: INSULIN REGULAR, HUMAN 100 UNITS/ML SQ PRN (07:47)
[2017-09-27] MEDS: LACTULOSE 20 GM/30 ML SOLUTION UDCUP PO SCH ×2 (08:51→20:01)
[2017-09-27] MEDS: PANTOPRAZOLE SODIUM 40 MG/VIAL IVP SCH (08:51)
[2017-09-27] MEDS: HEPARIN SODIUM,PORCINE 5,000 UNITS/ML VIAL SQ SCH ×2 (08:52→20:01)
[2017-09-27] MEDS: HydrALAZINE HCL 25 MG TABLET PO SCH ×3 (08:52→20:02)
[2017-09-27] MEDS: METOPROLOL TARTRATE 25 MG TABLET PO SCH ×2 (09:00→20:02)
[2017-09-27 09:27] LABS: GLUCOSE,POINT OF CARE 150 MG/DL (70-110)
[2017-09-27] MEDS: BISACODYL 10 MG RECTAL RECTAL SUPPOSITORY PR PRN (10:04)
[2017-09-27] MEDS ORDERED: SODIUM CHLORIDE 0.9% 250 ML IV ONE ×2 (11:33)
[2017-09-27 16:07] LABS: GLUCOSE,POINT OF CARE 113 MG/DL (70-110)
[2017-09-27 18:06] LABS: HERPES SIMPLEX VIRUS-1 BY PCR Negative (Negative); HERPES SIMPLEX VIRUS-2 BY PCR Negative (Negative)
[2017-09-28] VITALS (8 sets, daily range): BP systolic 97–112; BP diastolic 54–75
[2017-09-28] MEDS: AMPICILLIN SODIUM/SULBACTAM NA 3 GM in SODIUM CHLORIDE 0.9% 100 ML IV SCH ×3 (04:27→19:58)
[2017-09-28] MEDS: MetroNIDAZOLE 500 MG/NACL 100 ML IV SCH ×3 (04:27→20:03)
[2017-09-28] MEDS: MethylPREDNISolone SOD SUCC 40 MG/ML VIAL IVP SCH (04:28)
[2017-09-28] MEDS: MORPHINE SULFATE 4 MG/ML SYRINGE IVP PRN ×3 (04:28→21:02)
[2017-09-28 05:16] LABS: ANION GAP 6 mmol/L (8-16); CALCIUM, TOTAL 8.5 mg/dL (8.8-10.5); CARBON DIOXIDE 29 mmol/L (22-29); CHLORIDE 99 mmol/L (98-107); CREATININE 0.53 mg/dL (0.60-1.30); GLOMERULAR FILTR. RATE CALC > 60 mL/min (>60); GLUCOSE,RANDOM 133 mg/dL (70-110); PHOSPHORUS 3.6 mg/dL (2.5-4.9); POTASSIUM 3.6 mmol/L (3.5-5.1); SODIUM SERUM 134 mmol/L (136-145)
[2017-09-28] MEDS: VANCOMYCIN HCL 1.25 GM in DEXTROSE 5%-WATER 250 ML IV SCH ×3 (05:17→19:58)
[2017-09-28] MEDS: METOCLOPRAMIDE HCL 5 MG/ML 2 ML VIAL IVP SCH ×3 (05:17→19:59)
[2017-09-28 05:47] LABS: UREA NITROGEN, BLOOD 21 mg/dL (7-18)
[2017-09-28 06:39] LABS: GLUCOSE,POINT OF CARE 136 MG/DL (70-110)
[2017-09-28] MEDS: LACTULOSE 20 GM/30 ML SOLUTION UDCUP PO SCH ×2 (08:45→21:01)
[2017-09-28] MEDS: PANTOPRAZOLE SODIUM 40 MG/VIAL IVP SCH (08:45)
[2017-09-28] MEDS: HydrALAZINE HCL 25 MG TABLET PO SCH ×3 (08:45→21:00)
[2017-09-28] MEDS: HEPARIN SODIUM,PORCINE 5,000 UNITS/ML VIAL SQ SCH ×2 (08:46→21:02)
[2017-09-28] MEDS: METOPROLOL TARTRATE 25 MG TABLET PO SCH ×2 (09:00→21:00)
[2017-09-28 09:27] LABS: C.DIFF TOXINS A&B, Stool Negative (Negative)
[2017-09-28 09:28] LABS: C.DIFF GDH ANTIGEN, Stool Positive (Negative)
[2017-09-28] MEDS: INSULIN REGULAR, HUMAN 100 UNITS/ML SQ PRN (11:19)
[2017-09-28] MEDS: BISACODYL 10 MG RECTAL RECTAL SUPPOSITORY PR PRN (23:46)
[2017-09-28] MEDS: ACETAMINOPHEN 325 MG TABLET PO PRN (23:47)
[2017-09-29] VITALS: BP 109/53
[2017-09-29] MEDS: VANCOMYCIN HCL 1.25 GM in DEXTROSE 5%-WATER 250 ML IV SCH ×5 (00:50→23:45)
[2017-09-29] MEDS: AMPICILLIN SODIUM/SULBACTAM NA 3 GM in SODIUM CHLORIDE 0.9% 100 ML IV SCH ×5 (00:50→22:54)
[2017-09-29] MEDS: METOCLOPRAMIDE HCL 5 MG/ML 2 ML VIAL IVP SCH ×5 (00:51→23:43)
[2017-09-29] MEDS: MetroNIDAZOLE 500 MG/NACL 100 ML IV SCH ×3 (03:22→20:33)
[2017-09-29 04:00] VITALS: BP 100/58
[2017-09-29] MEDS ORDERED: SODIUM CHLORIDE 0.9% 100 ML ONE (04:23)
[2017-09-29] MEDS: MethylPREDNISolone SOD SUCC 40 MG/ML VIAL IVP SCH (04:23)
[2017-09-29 04:32] LABS: GLUCOSE,POINT OF CARE 159 MG/DL (70-110)
[2017-09-29 04:32] LABS: GLUCOSE,POINT OF CARE 140 MG/DL (70-110)
[2017-09-29 04:32] LABS: GLUCOSE,POINT OF CARE 97 MG/DL (70-110)
[2017-09-29 05:13] LABS: BASOPHILS % (AUTO) 0.1 % (0.0-2.0); EOSINOPHILS % (AUTO) 0.3 % (1.0-6.0); HEMATOCRIT 37.6 % (41-53); HEMOGLOBIN 13.3 g/dL (13.5-17.5); LYMPHOCYTES # (AUTO) 1.1 K/uL (1.0-4.8); LYMPHOCYTES % (AUTO) 6.8 % (22.0-44.0); MEAN CORPUSCULAR HEMOGLOBIN 29.4 pg (26.0-34.0); MEAN CORPUSCULAR HGB CONC 35.3 G/dL (31.0-37.0); MEAN CORPUSCULAR VOLUME 83 fL (80-100); MONOCYTES # (AUTO) 1.4 K/uL (0.1-1.0); MONOCYTES % (AUTO) 8.2 % (2.0-9.0); NEUTROPHILS # (AUTO) 14.2 K/uL (1.8-7.7); NEUTROPHILS % (AUTO) 84.6 % (40.0-70.0); PLATELET COUNT (AUTO) 184 K/uL (150-450); RED CELL DISTRIBUTION WIDTH 14.7 % (11.5-14.5)
[2017-09-29 05:19] LABS: ANION GAP 7 mmol/L (8-16); CALCIUM, TOTAL 8.4 mg/dL (8.8-10.5); CARBON DIOXIDE 29 mmol/L (22-29); CHLORIDE 99 mmol/L (98-107); CREATININE 0.65 mg/dL (0.60-1.30); GLOMERULAR FILTR. RATE CALC > 60 mL/min (>60); GLUCOSE,RANDOM 121 mg/dL (70-110); PHOSPHORUS 3.6 mg/dL (2.5-4.9); SODIUM SERUM 135 mmol/L (136-145); UREA NITROGEN, BLOOD 20 mg/dL (7-18); VANCOMYCIN,RANDOM 23.2 mcg/mL (25.0-50.0)
[2017-09-29 08:00] VITALS: BP 107/60
[2017-09-29] MEDS: PANTOPRAZOLE SODIUM 40 MG/VIAL IVP SCH (08:23)
[2017-09-29] MEDS: HydrALAZINE HCL 25 MG TABLET PO SCH ×2 (08:24→21:00)
[2017-09-29] MEDS: METOPROLOL TARTRATE 25 MG TABLET PO SCH ×2 (08:24→21:00)
[2017-09-29] MEDS: LACTULOSE 20 GM/30 ML SOLUTION UDCUP PO SCH ×2 (08:24→20:34)
[2017-09-29] MEDS: FLUCONAZOLE 100 MG TABLET PO SCH (08:24)
[2017-09-29] MEDS: HEPARIN SODIUM,PORCINE 5,000 UNITS/ML VIAL SQ SCH ×2 (08:25→20:34)
[2017-09-29] MEDS: INSULIN REGULAR, HUMAN 100 UNITS/ML SQ PRN (10:02)
[2017-09-29 12:00] VITALS: BP 98/62
[2017-09-29 12:02] LABS: GLUCOSE,POINT OF CARE 160 MG/DL (70-110)
[2017-09-29] MEDS ORDERED: SODIUM CHLORIDE 0.9% 250 ML IV ONE ×3 (12:39→22:41)
[2017-09-29 12:53] LABS: HSV TYPE 2 AB IGG-CSF 0.15 IV (<=0.89); HSV TYPE I-SPECIFIC AB IGG CSF 0.33 IV (<=0.89)
[2017-09-29] MEDS: MORPHINE SULFATE 4 MG/ML SYRINGE IVP PRN (14:50)
[2017-09-29 15:02] LABS: ABG A-A DIFF O2 68.7 mmHg (10-20.0); ABG BASE EXCESS 0.9 mmol/L (-2.0-3.0); ABG CARBOXYHEMOGLOBIN 1.1 % (0.0-1.5); ABG HCO3 25.3 mmol/L (22.0-26.0); ABG METHEMOGLOBIN 0.2 % (0.0-1.5); ABG OXYGEN CONTENT 20.1 mL/dL (15.0-23.0); ABG OXYGEN SATURATION 98.9 % (95.0-98.0); ABG OXYHEMOGLOBIN 97.6 % (94.0-100.0); ABG PCO2 42 mmHg (35-45); ABG PH 7.403 (7.350-7.450); ABG TOTAL HEMOGLOBIN 14.5 G/dL (12.0-18.0); PO2, ARTERIAL BG 131.5 mmHg (92.0-100.0); SOURCE, BLOOD GAS ARTERIAL; TEMPERATURE, FAHRENHEIT, BG 99.3 FAHREN (96.0-98.6)
[2017-09-29 15:03] LABS: O2 DEVICE,BLOOD GAS VENTILATOR (ROOM AIR); PEEP,BG 0 cm H2O; SITE, BLOOD GAS RT RADIAL; VT, ABG 550 ml
[2017-09-29 16:00] VITALS: BP 113/62
[2017-09-29 17:43] LABS: GLUCOSE,POINT OF CARE 113 MG/DL (70-110)
[2017-09-29 20:00] VITALS: BP 102/60
[2017-09-30] VITALS (7 sets, daily range): BP systolic 109–123; BP diastolic 61–77
[2017-09-30] MEDS: MetroNIDAZOLE 500 MG/NACL 100 ML IV SCH ×2 (03:33→12:19)
[2017-09-30 05:08] LABS: ANION GAP 2 mmol/L (8-16); CALCIUM, TOTAL 8.6 mg/dL (8.8-10.5); CARBON DIOXIDE 33 mmol/L (22-29); CHLORIDE 98 mmol/L (98-107); GLOMERULAR FILTR. RATE CALC > 60 mL/min (>60); GLUCOSE,RANDOM 117 mg/dL (70-110); PHOSPHORUS 4.1 mg/dL (2.5-4.9); POTASSIUM 4.1 mmol/L (3.5-5.1); SODIUM SERUM 133 mmol/L (136-145); UREA NITROGEN, BLOOD 17 mg/dL (7-18)
[2017-09-30] MEDS: AMPICILLIN SODIUM/SULBACTAM NA 3 GM in SODIUM CHLORIDE 0.9% 100 ML IV SCH ×3 (05:13→16:20)
[2017-09-30] MEDS: VANCOMYCIN HCL 1.25 GM in DEXTROSE 5%-WATER 250 ML IV SCH ×3 (05:46→17:02)
[2017-09-30] MEDS: METOCLOPRAMIDE HCL 5 MG/ML 2 ML VIAL IVP SCH ×3 (05:46→17:02)
[2017-09-30 06:06] LABS: MUMPS VIRUS IGM ANTIBODY CSF 0.05 IV (<=0.79); RUBEOLA (MEASLES) IGG CSF <5.0 AU/mL (<=29.9); WEST NILE VIRUS IGG CSF 0.06 IV (<=1.29); WEST NILE VIRUS IGM CSF 0.01 IV (<=0.89)
[2017-09-30 06:38] LABS: GLUCOSE,POINT OF CARE 98 MG/DL (70-110)
[2017-09-30 06:38] LABS: GLUCOSE,POINT OF CARE 104 MG/DL (70-110)
[2017-09-30] MEDS: METOPROLOL TARTRATE 25 MG TABLET PO SCH (09:00)
[2017-09-30] MEDS: HydrALAZINE HCL 25 MG TABLET PO SCH (09:00)
[2017-09-30] MEDS: LACTULOSE 20 GM/30 ML SOLUTION UDCUP PO SCH (09:48)
[2017-09-30] MEDS: HEPARIN SODIUM,PORCINE 5,000 UNITS/ML VIAL SQ SCH (09:48)
[2017-09-30] MEDS: FLUCONAZOLE 100 MG TABLET PO SCH (09:48)
[2017-09-30] MEDS: PANTOPRAZOLE SODIUM 40 MG/VIAL IVP SCH (09:48)
[2017-09-30 11:27] LABS: GLUCOSE,POINT OF CARE 124 MG/DL (70-110)
[2017-09-30] MEDS: MORPHINE SULFATE 4 MG/ML SYRINGE IVP PRN (17:03)
[2017-09-30 17:50] LABS: GLUCOSE,POINT OF CARE 110 MG/DL (70-110)
== END 2017-09-30 17:30 | DRG 4 ==
LOC: EMS 06:03 → ICU 14:02
PROVIDERS: ADMIT Internal Medicine; ATTEND Internal Medicine
PROC: 5A1955Z Respiratory Ventilation, Greater than 96 Consecutive Hours (ICD-10-PCS; principal; 2017-09-15)
PROC: 0BH17EZ Insertion of Endotracheal Airway into Trachea, Via Natural or Artificial Opening (ICD-10-PCS; 2017-09-15)
PROC: 0W9930Z Drainage of Right Pleural Cavity with Drainage Device, Percutaneous Approach (ICD-10-PCS; 2017-09-16)
PROC: 02HV33Z Insertion of Infusion Device into Superior Vena Cava, Percutaneous Approach (ICD-10-PCS; 2017-09-16)
PROC: B548ZZA Ultrasonography of Superior Vena Cava, Guidance (ICD-10-PCS; 2017-09-16)
PROC: 4A00X4Z Measurement of Central Nervous Electrical Activity, External Approach (ICD-10-PCS; 2017-09-24)
PROC: 0B110F4 Bypass Trachea to Cutaneous with Tracheostomy Device, Open Approach (ICD-10-PCS; 2017-09-26)
PROC: 0KB70ZZ Excision of Right Upper Arm Muscle, Open Approach (ICD-10-PCS; 2017-09-26)
PROC: 0KB80ZZ Excision of Left Upper Arm Muscle, Open Approach (ICD-10-PCS; 2017-09-26)
PROC: 009U3ZX Drainage of Spinal Canal, Percutaneous Approach, Diagnostic (ICD-10-PCS; 2017-09-26)
PROC: B01B1ZZ Fluoroscopy of Spinal Cord using Low Osmolar Contrast (ICD-10-PCS; 2017-09-26)
DX: T40.601A Poisoning by unspecified narcotics, accidental (unintentional), initial encounter (principal); R65.20 Severe sepsis without septic shock; G72.81 Critical illness myopathy; G92 Toxic encephalopathy; A41.9 Sepsis, unspecified organism; A48.52 Wound botulism; A04.72 Enterocolitis due to Clostridium difficile, not specified as recurrent; J96.02 Acute respiratory failure with hypercapnia; J96.01 Acute respiratory failure with hypoxia; F11.259 Opioid dependence with opioid-induced psychotic disorder, unspecified; E87.2 Acidosis; J93.9 Pneumothorax, unspecified; L02.414 Cutaneous abscess of left upper limb; L02.413 Cutaneous abscess of right upper limb; B19.20 Unspecified viral hepatitis C without hepatic coma; R13.10 Dysphagia, unspecified; G83.9 Paralytic syndrome, unspecified; K59.00 Constipation, unspecified; L03.113 Cellulitis of right upper limb; T88.4XXA Failed or difficult intubation, initial encounter; F17.210 Nicotine dependence, cigarettes, uncomplicated; B96.20 Unspecified Escherichia coli [E. coli] as the cause of diseases classified elsewhere; B96.89 Other specified bacterial agents as the cause of diseases classified elsewhere; B95.61 Methicillin susceptible Staphylococcus aureus infection as the cause of diseases classified elsewhere; Z22.322 Carrier or suspected carrier of Methicillin resistant Staphylococcus aureus; Z91.19 Patient's noncompliance with other medical treatment and regimen; Z99.11 Dependence on respirator [ventilator] status; X58.XXXA Exposure to other specified factors, initial encounter; Y93.89 Activity, other specified; Y92.89 Other specified places as the place of occurrence of the external cause; Y99.8 Other external cause status; Z78.1 Physical restraint status
CPT/HCPCS: 31500; 32551; 36569; 51702; 70450; 70491; 70551; 71250; 73200; 77012; 82805; 82945; 83605; 83735; 84100; 84145; 84157; 84439; 84443; 85007; 86694; 86735; 86738; 86765; 86787; 86788; 86789; 87040; 87070; 87081; 87086; 87205; 87324; 87449; 87529; 87804; 87899; 89051; 93005; 93306; 94002; 94003; 95816; 96372; 96374; 96375; 99291; 99292; C9113; G0480; G0481; J0295; J0330; J0360; J0456; J0690; J0696; J1100; J1644; J2250; J2270; J2310; J2405; J2543; J2704; J2765; J2920; J2930; J3010; J3370; J3490; J7030; J7042; J7050; J7060